=== PATIENT | female | born 1940 | race Caucasian/White ===

== ENCOUNTER → 2017-11-11 09:51 | Outpatient (CLI) | payer MEDICARE, SELFPAY ==
--- NOTE | 2017-11-11 09:53 | VDLE_ITS ---
Reason For Study: LEG SWELLING RIGHT LEFT CFV is compressible, spontaneous, phasic, CFV is compressible, spontaneous, phasic, competent and demonstrates normal competent, and demonstrates normal augmentation. augmentation. FV is compressible, spontaneous, phasic, FV is compressible, spontaneous, phasic, competent and demonstrates normal competent and demonstrates normal augmentation. augmentation. POP V is compressible, spontaneous, phasic, POP V is compressible, spontaneous, phasic, competent and demonstrates normal competent and demonstrates normal augmentation. augmentation. T/P Trunk is compressible. T/P Trunk is compressible. PTV is compressible. PTV is compressible. RT PerV is compressible. LT PerV is compressible. GSV occluded s/p EVLA GSV occluded in thigh s/p EVLA SSv competent. ASV zone 3 is INCOMPETENT with reflux Procedure greater than .5 sec and diameter of .55 Exam performed in department. x .60 cm GSV in calf is INCOMPETENT with reflux greater than .5 sec and diameter of.40 x .40 cm SSv competent INCOMPETENT mold sheet cleaner 13 cm prox to medial malleolus. Interpretation Summary 1. Bilateral no DVT. 2. Left ASV reflux 6mm 3. Left calf GSV 4mm and reflux. Ordering Physician: Jeison Shah Referring Physician: Jeison Shah Performed By: Irene Sheth RVT
== END ==
PROVIDERS: Family Provider Nurse Practitioner Primary Care; PCP Nurse Practitioner Primary Care; Visit Provider Surgery Vascular Surgery
DX: M79.604 Pain in right leg (principal); M79.605 Pain in left leg; M79.89 Other specified soft tissue disorders
CPT/HCPCS: 93970

== ENCOUNTER 2018-08-11 11:07 | Outpatient (RCR) | payer MEDICARE, SELFPAY | END 2018-08-12 23:59 | LOC: WC 11:07 | PROVIDERS: Family Provider Nurse Practitioner Primary Care; PCP Nurse Practitioner Primary Care; Visit Provider Surgery | DX: Z09 Encounter for follow-up examination after completed treatment for conditions other than malignant neoplasm (principal) ==

== ENCOUNTER 2018-09-04 09:00 | Outpatient (RCR) | payer MEDICARE, SELFPAY ==
[2018-08-25 09:46] VITALS: BP 143/76; PULSE 81; RESP 18; TEMP 35.5; BMI 30.6
--- NOTE | 2018-08-25 11:37 | PCM.WC.HP ---
(1) Chronic venous insufficiency Status: Chronic Current Visit: Yes Code(s): I87.2 - Venous insufficiency (chronic) (peripheral) (2) Left leg swelling Status: Chronic Current Visit: Yes Code(s): M79.89 - Other specified soft tissue disorders (3) Venous stasis ulcer Status: Chronic Current Visit: Yes Qualifiers: Venous stasis ulcer site: calf Laterality: left Non-pressure ulcer stage: limited to breakdown of skin Code(s): I83.009 - Varicose veins of unspecified lower extremity with ulcer of unspecified site; L97.909 - Non-pressure chronic ulcer of unspecified part of unspecified lower leg with unspecified severity (4) Peripheral neuropathy Status: Chronic Current Visit: No Code(s): G62.9 - Polyneuropathy, unspecified (5) GERD (gastroesophageal reflux disease) Status: Chronic Current Visit: No Code(s): K21.9 - Gastro-esophageal reflux disease without esophagitis (6) Hyperlipidemia Status: Chronic Current Visit: No Code(s): E78.5 - Hyperlipidemia, unspecified (7) Type 2 diabetes mellitus Status: Chronic Current Visit: No Code(s): E11.9 - Type 2 diabetes mellitus without complications (8) Hypertension Status: Chronic Current Visit: No Code(s): I10 - Essential (primary) hypertension History of Present Illness Date of Service: 08/25/18 Chief Complaint: Venous stasis ulceration of the left lower extremity History of Wound: This is a 77-year-old female who presents with a venous stasis ulceration of the left lower extremity. The ulceration has been present since February 2018. It is located on the left medial calf, in the gator area. The patient claims to sleep flat at night. She is active. She denies a history of thrombophlebitis. She relates swelling in her lower extremities, late in the day. She owns graduated compression stockings, but has not worn compression stockings since onset of her left lower extremity ulceration. She has been treated for cellulitis recently by her primary care physician. This included a course of oral antibiotics, though the patient is uncertain as to which antibiotic was prescribed. In addition, the patient is undergone several endovenous ablation procedures recently, involving both legs. An ablation procedure was performed in the left lower extremity as recently as last month. An ablation procedure was also performed in the right lower extremity several months ago. Records are not available in regard to her recent ablations from Dr. Jeison Shah. Nor our records received from the patient's primary care physician regarding recent treatment for cellulitis. 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 The left great saphenous vein below the knee was seen to be incompetent. The left small saphenous vein appeared competent. An incompetent accessory saphenous vein was noted in zone 3. An incompetent billiard parlor manager vein was noted 13 cm proximal to the left medial malleolus. Past Medical History Past Medical History: Chronic Problems Chronic venous insufficiency (Chronic) Left leg swelling (Chronic) Venous stasis ulcer (Chronic) Peripheral neuropathy (Chronic) Chronic anemia (Chronic) GERD (gastroesophageal reflux disease) (Chronic) Hyperlipidemia (Chronic) Type 2 diabetes mellitus (Chronic) Hypertension (Chronic) Past Medical History: The patient has a history of diabetes mellitus, type II. She also has a history of peripheral neuropathy, hypertension, and hyperlipidemia. The patient's history is negative for myocardial infarction, congestive heart failure, cerebrovascular accident, cancer, renal disease, pulmonary disease, and thyroid disease. Surgical History: appendectomy, - - History of esophageal dilatation probably for esophageal strictures. The patient has undergone bilateral lower extremity venous ablation procedures. She has undergone tonsillectomy in the past, low back surgery, and open reduction and internal fixation of the left lower extremity fracture. Allergies/Adverse Reactions: Allergies No Known Allergies Allergy (Verified 06/03/17 09:21) Home Medications: Ambulatory Orders Medication Instructions Recorded Biotin 5,000 mcg PO TID 06/03/17 Lovastatin [Mevacor] 20 mg PO DAILY 06/03/17 Lysine [l-Lysine] 500 mg PO BID 06/03/17 Omeprazole [Prilosec] 40 mg PO BID 06/03/17 Amlodipine [Norvasc] 5 mg PO DAILY #30 tablet 06/19/17 Cholecalciferol (VIT D3) [Vitamin 3,000 unit PO DAILY #30 06/19/17 D3] Hydrocodone Bitart/Apap 5-325 1 - 2 tablet PO Q4H PRN PRN #14 06/19/17 [[place] 5/325] tablet Iron Polysaccharide Complex 150 mg PO DAILYCM #30 capsule 06/19/17 [Ferrex 150] Metformin HCl [Glucophage] 850 mg PO TIDCM #90 06/19/17 Montelukast [Singulair] 10 mg PO DAILY #30 06/19/17 Pregabalin [Lyrica] 100 mg PO TID #90 06/19/17 - Family History Maternal No pertinent history, - - The patient's mother at age of 82 with a history of Alzheimer's disease. Paternal No pertinent history, - - The patient's father at the age of 45 from a myocardial infarction. Social History: The patient is . She denies use of alcohol and tobacco products. She is employed as a high school assistant principal. Lives: Alone Smoking Status: Former smoker Tobacco Use: Non-smoker Alcohol: None Drugs: None Review of Systems Constitutional: Denies: Chills, Fever, Weight Change Eyes: Denies: Pain, Vision Change HEENT: Denies: Difficulty Hearing, Difficulty Swallowing, Sinus Congestion Cardiovascular: Denies: Chest Pain, Palpitations Respiratory: Denies: Cough, Shortness of Breath Gastrointestinal: Denies: Diarrhea, Nausea, Vomiting Genitourinary: Denies: Dysuria, Hematuria Endocrine: Denies: Heat/ Cold Intolerance, Polydipsia, Polyuria Hematologic/ Lymphatic: Denies: Easy Bruising, Easy Bleeding - Physical Exam Vital Signs Temp Pulse Resp BP 96 F L 81 18 143/76 H 08/25/18 09:46 08/25/18 09:46 08/25/18 09:46 08/25/18 09:46 General: Alert, Oriented x3, Cooperative, No apparent distress, Well developed, Well nourished HEENT: Atraumatic, PERRLA, EOMI, Normocephalic Oral: Moist Mucosa Neck: Supple, No JVD, Negative Carotid Bruits, Negative Hepatojugular Reflux, No Nodes, No Nuchal Rigidity, Trachea Midline Lungs: Clear to auscultation, Normal air movement, No rhonchi, No wheeze, No rales Cardiovascular: Regular rate, Regular Rhythm, Normal S1, Normal S2, No murmurs Abdomen: Soft, Non Tender, Non-Distended Extremities: No clubbing, No cyanosis, No Calf Tenderness, - - Mild swelling and edema are noted in the left lower extremity. A superficial venous ulceration is noted in the left gaiter area medially. There is no obvious sign of infection or cellulitis. Circumference measurements are documented elsewhere. Ulcer dimensions are also documented elsewhere. Wound Measurements and Assessment WC - Nurse 1 - General Ulcer Measurement Start: 08/25/18 09:45 Freq: Status: Active Protocol: Activity Type Activity Date Activity User E-Sign Co-Sign Detail Recorded Client Recorded Date Recorded By Document 08/25/18 09:46 HI [id number] 08/25/18 10:22 HI 08/25/18 09:46 Wound Center Nurse 1 [Ulcer Assessment] #1 Medial LLE Cluster -Combined with other wound Yes -Combined with (Name of Wound-Exactly 1 as it is documented) -Current Size (cm) - Length 3.5 -Current Size (cm) - Width 3.5 -Current Size (cm) - Depth 0.1 -Total Square Cm 12.25 -Date of Last Picture (Recall this 08/25/18 field) -Photo Taken Yes -Epithelialization Medium 34-66% -Tunneling No -Undermining/Tunneling No -Circular Undermining No -Exudate Amt None Present (0 %) -Wound Margin Distinct, Outline Attached -Granulation Amt Large (67-100%) -Granulation Quality Pale [place] -Slough/Fibrin No -Texture (Cherry-wound Skin Appearance) Assessed Localized Edema -Moisture (Cherry-wound Skin Appearance Assessed ) Maceration -Color (Cherry-wound Skin Appearance) Assessed Palor -Temperature (Cherry-wound Skin No Abnormality Appearance) (Pt Warm) -Tenderness on Palpation (Cherry-wound Yes Skin Appearance) -Ulcer Cleansing Wound Cleanser -Foul Odor after Cleansing No -Anesthetic Used 4% Lidocaine Solution [Edema Assessment] -Lower Limb Edema Present Yes -Right Calf (cm) 32.5 -Right Ankle (cm) 24 -Left Calf (cm) 32.5 -Left Ankle (cm) 23 WC - Nurse 2 - General Ulcer CM Notes Start: 08/25/18 09:45 Freq: Status: Active Protocol: Activity Type Activity Date Activity User E-Sign Co-Sign Detail Recorded Client Recorded Date Recorded By Document 08/25/18 11:18 [id number] 08/25/18 11:25 08/25/18 11:18 Wound Center Nurse 2 [Procedure/Treatment] #1 Medial LLE Cluster -Time 11:23 -Correct Patient Yes -Correct Side, Site, Position Yes -Correct Procedure Yes -Wound/Ulcer Outcome Not Healed -Ulcer Cleansing Not Cleansed -Foul Odor after Cleansing No -Bioengineered Tissue No -Topical Lidocaine (%) 4 -Lidocaine (ml) 5 -Bleeding Controlled with NA [See Physician Procedure note for Specifics] Pain Scale: 0-10 Numeric [Pain] -Is Patient Pain Free? Yes Musculoskeletal: No Muscle Wasting Neurological: Cranial nerves II-XII grossly intact, Neuro grossly intact Psych/Mental Status: Normal Affect, Appropriate, Alert and oriented to time, place, person, mood and affect Debridement Note Post-Debridement Measurements/Treatment WC - Nurse 2 - General Ulcer CM Notes Start: 08/25/18 09:45 Freq: Status: Active Protocol: Activity Type Activity Date Activity User E-Sign Co-Sign Detail Recorded Client Recorded Date Recorded By Document 08/25/18 11:18 ELLIOTT [id number] 08/25/18 11:25 ELLIOTT 08/25/18 11:18 Wound Center Nurse 2 #1 Medial LLE Cluster -Time 11:23 -Correct Patient Yes -Correct Side, Site, Position Yes -Correct Procedure Yes -Wound/Ulcer Outcome Not Healed -Ulcer Cleansing Not Cleansed -Foul Odor after Cleansing No -Bioengineered Tissue No -Topical Lidocaine (%) 4 -Lidocaine (ml) 5 -Bleeding Controlled with NA Pain Scale: 0-10 Numeric Is Patient Pain Free? Yes No debridement was completed today Assessment/Plan Active Problems Chronic venous insufficiency (Chronic) Left leg swelling (Chronic) Venous stasis ulcer (Chronic) Assessment: This is a 77-year-old female who presents with a history of chronic venous disease. She has previously undergone bilateral lower extremity venous ablation procedures. The nature of these procedures is unknown. Records will be requested. The patient relates swelling in her lower extremities, typically at days end. She denies a history of thrombophlebitis. She generally wears graduated compression stockings, but has not done so since the onset of the ulceration in the left lower extremity. It appears as though she was treated for cellulitis in the left lower extremity, prescribed a course of oral antibiotics by her primary care physician. Plan: Insert of treatment measures are to be implemented. The patient is to elevate her lower extremities as much as possible. She is to continue sleeping on a flat mattress at night. She is to elevate her lower extremities as much as possible during daytime hours. Elevation is to be to heart level, or higher. She has been advised to refrain from prolonged idle sitting. Activity has been encouraged. Weight optimization has also been recommended. Compression is to be implemented to the left lower extremity by means of an [place] boot, which will be changed twice weekly. We are to obtain routine laboratory studies, including a CBC, conference of metabolic profile, hemoglobin A1c, and a serum prealbumin. Noninvasive vascular studies will be obtained, both a noninvasive lower extremity arterial study and a venous duplex examination. Records will be requested from the patient's other physicians, her primary care physician and Dr. Jeison Shah. The patient will return in 1 week for reassessment. Influenza vaccine was not administered today. The patient is not a smoker. The patient weighs 162 pounds. She stands 5 feet 1 inch tall. Her BMI is 30.6. This places her in a class I obesity category. Weight loss has been recommended, and collaboration with her primary care physician has been recommended.
--- NOTE | 2018-08-25 11:44 | HP.PCM_ITS ---
(1) Chronic venous insufficiency Status: Chronic Current Visit: Yes Code(s): I87.2 - Venous insufficiency (chronic) (peripheral) (2) Left leg swelling Status: Chronic Current Visit: Yes Code(s): M79.89 - Other specified soft tissue disorders (3) Venous stasis ulcer Status: Chronic Current Visit: Yes Qualifiers: Venous stasis ulcer site: calf Laterality: left Non-pressure ulcer stage: limited to breakdown of skin Code(s): I83.009 - Varicose veins of unspecified lower extremity with ulcer of unspecified site; L97.909 - Non-pressure chronic ulcer of unspecified part of unspecified lower leg with unspecified severity (4) Peripheral neuropathy Status: Chronic Current Visit: No Code(s): G62.9 - Polyneuropathy, unspecif ied (5) GERD (gastroesophageal reflux disease) Status: Chronic Current Visit: No Code(s): K21.9 - Gastro-esophageal reflux disease without esophagitis (6) Hyperlipidemia Status: Chronic Current Visit: No Code(s): E78.5 - Hyperlipidemia, unspecified (7) Type 2 diabetes mellitus Status: Chronic Current Visit: No Code(s): E11.9 - Type 2 diabetes mellitus without complications (8) Hypertension Status: Chronic Current Visit: No Code(s): I10 - Essential (primary) hypertension History of Present Illness Date of Service: 08/25/18 Chief Complaint: Venous stasis ulceration of the left lower extremity History of Wound: This is a 77-year-old female who presents with a venous stasis ulceration of the left lower extremity. The ulceration has been present since February 2018. It is located on the left medial calf, in the gator area. The patient claims to sleep flat at night. She is active. She denies a history of thrombophlebitis. She relates swelling in her lower extremities, late in the day. She owns graduated compression stockings, but has not worn compression stockings since onset of her left lower extremity ulceration. She has been treated for cellulitis recently by her primary care physician. This included a course of oral antibiotics, though the patient is uncertain as to which antibiotic was prescribed. In addition, the patient is undergone several endovenous ablation procedures recently, involving both legs. An ablation procedure was performed in the left lower extremity as recently as last month. An ablation procedure was also performed in the right lower extremity several months ago. Records are not available in regard to her recent ablations from Dr. Jeison Shah. Nor our records received from the patient's primary care physician regarding recent treatment for cellulitis. 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 The left great saphenous vein below the knee was seen to be incompetent. The left small saphenous vein appeared competent. An incompetent accessory saphenous vein was noted in zone 3. An incompetent management aide vein was noted 13 cm proximal to the left medial malleolus. Past Medical History Past Medical History: Chronic Problems Chronic venous insufficiency (Chronic) Left leg swelling (Chronic) Venous stasis ulcer (Chronic) Peripheral neuropathy (Chronic) Chronic anemia (Chronic) GERD (gastroesophageal reflux disease) (Chronic) Hyperlipidemia (Chronic) Type 2 diabetes mellitus (Chronic) Hypertension (Chronic) Past Medical History: The patient has a history of diabetes mellitus, type II. She also has a history of peripheral neuropathy, hypertension, and hyperlipidemia. The patient's history is negative for myocardial infarction, congestive heart failure, cerebrovascular accident, cancer, renal disease, pulmonary disease, and thyroid disease. Surgical History: appendectomy, - - History of esophageal dilatation probably for esophageal strictures. The patient has undergone bilateral lower extremity venous ablation procedures. She has undergone tonsillectomy in the past, low back surgery, and open reduction and internal fixation of the left lower extremity fracture. Allergies/Adverse Reactions: Allergies No Known Allergies Allergy (Verified 06/03/17 09:21) Home Medications: Ambulatory Orders Medication Instructions Recorded Biotin 5,000 mcg PO TID 06/03/17 Lovastatin [Mevacor] 20 mg PO DAILY 06/03/17 Lysine [l-Lysine] 500 mg PO BID 06/03/17 Omeprazole [Prilosec] 40 mg PO BID 06/03/17 Amlodipine [Norvasc] 5 mg PO DAILY #30 tablet 06/19/17 Cholecalciferol (VIT D3) [Vitamin 3,000 unit PO DAILY #30 06/19/17 D3] Hydrocodone Bitart/Apap 5-325 1 - 2 tablet PO Q4H PRN PRN #14 06/19/17 [[place] 5/325] tablet Iron Polysaccharide Complex 150 mg PO DAILYCM #30 capsule 06/19/17 [Ferrex 150] Metformin HCl [Glucophage] 850 mg PO TIDCM #90 06/19/17 Montelukast [Singulair] 10 mg PO DAILY #30 06/19/17 Pregabalin [Lyrica] 100 mg PO TID #90 06/19/17 - Family History Maternal No pertinent history, - - The patient's mother at age of 82 with a history of Alzheimer's disease. Paternal No pertinent history, - - The patient's father at the age of 45 from a myocardial infarction. Social History: The patient is . She denies use of alcohol and tobacco products. She is employed as a high school history teacher. Lives: Alone Smoking Status: Former smoker Tobacco Use: Non-smoker Alcohol: None Drugs: None Review of Systems Constitutional: Denies: Chills, Fever, Weight Change Eyes: Denies: Pain, Vision Change HEENT: Denies: Difficulty Hearing, Difficulty Swallowing, Sinus Congestion Cardiovascular: Denies: Chest Pain, Palpitations Respiratory: Denies: Cough, Shortness of Breath Gastrointestinal: Denies: Diarrhea, Nausea, Vomiting Genitourinary: Denies: Dysuria, Hematuria Endocrine: Denies: Heat/ Cold Intolerance, Polydipsia, Polyuria Hematologic/ Lymphatic: Denies: Easy Bruising, Easy Bleeding - Physical Exam Vital Signs Temp Pulse Resp BP 96 F L 81 18 143/76 H 08/25/18 09:46 08/25/18 09:46 08/25/18 09:46 08/25/18 09:46 General: Alert, Oriented x3, Cooperative, No apparent distress, Well developed, Well nourished HEENT: Atraumatic, PERRLA, EOMI, Normocephalic Oral: Moist Mucosa Neck: Supple, No JVD, Negative Carotid Bruits, Negative Hepatojugular Reflux, No Nodes, No Nuchal Rigidity, Trachea Midline Lungs: Clear to auscultation, Normal air movement, No rhonchi, No wheeze, No rales Cardiovascular: Regular rate, Regular Rhythm, Normal S1, Normal S2, No murmurs Abdomen: Soft, Non Tender, Non-Distended Extremities: No clubbing, No cyanosis, No Calf Tenderness, - - Mild swelling and edema are noted in the left lower extremity. A superficial venous ulceration is noted in the left gaiter area medially. There is no obvious sign of infection or cellulitis. Circumference measurements are documented elsewhere. Ulcer dimensions are also documented elsewhere. Wound Measurements and Assessment WC - Nurse 1 - General Ulcer Measurement Start: 08/25/18 09:45 Freq: Status: Active Protocol: Activity Type Activity Date Activity User E-Sign Co-Sign Detail Recorded Client Recorded Date Recorded By Document 08/25/18 09:46 NM [id number] 08/25/18 10:22 MT 08/25/18 09:46 Wound Center Nurse 1 [Ulcer Assessment] #1 Medial LLE Cluster -Combined with other wound Yes -Combined with (Name of Wound-Exactly 1 as it is documented) -Current Size (cm) - Length 3.5 -Current Size (cm) - Width 3.5 -Current Size (cm) - Depth 0.1 -Total Square Cm 12.25 -Date of Last Picture (Recall this 08/25/18 field) -Photo Taken Yes -Epithelialization Medium 34-66% -Tunneling No -Undermining/Tunneling No -Circular Undermining No -Exudate Amt None Present (0 %) -Wound Margin Distinct, Outline Attached -Granulation Amt Large (67-100%) -Granulation Quality Pale Redan -Slough/Fibrin No -Texture (Cherry-wound Skin Appearance) Assessed Localized Edema -Moisture (Cherry-wound Skin Appearance Assessed ) Maceration -Color (Cherry-wound Skin Appearance) Assessed Palor -Temperature (Cherry-wound Skin No Abnormality Appearance) (Pt Warm) -Tenderness on Palpation (Cherry-wound Yes Skin Appearance) -Ulcer Cleansing Wound Cleanser -Foul Odor after Cleansing No -Anesthetic Used 4% Lidocaine Solution [Edema Assessment] -Lower Limb Edema Present Yes -Right Calf (cm) 32.5 -Right Ankle (cm) 24 -Left Calf (cm) 32.5 -Left Ankle (cm) 23 WC - Nurse 2 - General Ulcer CM Notes Start: 08/25/18 09:45 Freq: Status: Active Protocol: Activity Type Activity Date Activity User E-Sign Co-Sign Detail Recorded Client Recorded Date Recorded By Document 08/25/18 11:18 [id number] 08/25/18 11:25 08/25/18 11:18 Wound Center Nurse 2 [Procedure/Treatment] #1 Medial LLE Cluster -Time 11:23 -Correct Patient Yes -Correct Side, Site, Position Yes -Correct Procedure Yes -Wound/Ulcer Outcome Not Healed -Ulcer Cleansing Not Cleansed -Foul Odor after Cleansing No -Bioengineered Tissue No -Topical Lidocaine (%) 4 -Lidocaine (ml) 5 -Bleeding Controlled with NA [See Physician Procedure note for Specifics] Pain Scale: 0-10 Numeric [Pain] -Is Patient Pain Free? Yes Musculoskeletal: No Muscle Wasting Neurological: Cranial nerves II-XII grossly intact, Neuro grossly intact Psych/Mental Status: Normal Affect, Appropriate, Alert and oriented to time, place, person, mood and affect Debridement Note Post-Debridement Measurements/Treatment WC - Nurse 2 - General Ulcer CM Notes Start: 08/25/18 09:45 Freq: Status: Active Protocol: Activity Type Activity Date Activity User E-Sign Co-Sign Detail Recorded Client Recorded Date Recorded By Document 08/25/18 11:18 ELLIOTT [id number] 08/25/18 11:25 ELLIOTT 08/25/18 11:18 Wound Center Nurse 2 #1 Medial LLE Cluster -Time 11:23 -Correct Patient Yes -Correct Side, Site, Position Yes -Correct Procedure Yes -Wound/Ulcer Outcome Not Healed -Ulcer Cleansing Not Cleansed -Foul Odor after Cleansing No -Bioengineered Tissue No -Topical Lidocaine (%) 4 -Lidocaine (ml) 5 -Bleeding Controlled with NA Pain Scale: 0-10 Numeric Is Patient Pain Free? Yes No debridement was completed today Assessment/Plan Active Problems Chronic venous insufficiency (Chronic) Left leg swelling (Chronic) Venous stasis ulcer (Chronic) Assessment: This is a 77-year-old female who presents with a history of chronic venous disease. She has previously undergone bilateral lower extremity venous ablation procedures. The nature of these procedures is unknown. Records will be requested. The patient relates swelling in her lower extremities, typically at days end. She denies a history of thrombophlebitis. She generally wears graduated compression stockings, but has not done so since the onset of the ulceration in the left lower extremity. It appears as though she was treated for cellulitis in the left lower extremity, prescribed a course of oral antibiotics by her primary care physician. Plan: Insert of treatment measures are to be implemented. The patient is to elevate her lower extremities as much as possible. She is to continue sleeping on a flat mattress at night. She is to elevate her lower extremities as much as possible during daytime hours. Elevation is to be to heart level, or higher. She has been advised to refrain from prolonged idle sitting. Activity has been encouraged. Weight optimization has also been recommended. Compression is to be implemented to the left lower extremity by means of an [place] boot, which will be changed twice weekly. We are to obtain routine laboratory studies, including a CBC, conference of metabolic profile, hemoglobin A1c, and a serum prealbumin. Noninvasive vascular studies will be obtained, both a noninvasive lower extremity arterial study and a venous duplex examination. Records will be requested from the patient's other physicians, her primary care physician and Dr. Jeison Shah. The patient will return in 1 week for reassessment. Influenza vaccine was not administered today. The patient is not a smoker. The patient weighs 162 pounds. She stands 5 feet 1 inch tall. Her BMI is 30.6. This places her in a class I obesity category. Weight loss has been recommended, and collaboration with her primary care physician has been recommended.
[2018-08-28 09:29] VITALS: BP 143/66; PULSE 67; RESP 18; TEMP 36.3; BMI 30.6
[2018-09-01 10:23] VITALS: BP 141/77; PULSE 76; RESP 20; TEMP 36.8; BMI 30.6
--- NOTE | 2018-09-01 11:30 | PCM.WC.HP ---
(1) Chronic venous insufficiency Status: Chronic Current Visit: Yes Code(s): I87.2 - Venous insufficiency (chronic) (peripheral) (2) Left leg swelling Status: Chronic Current Visit: Yes Code(s): M79.89 - Other specified soft tissue disorders (3) Venous stasis ulcer Status: Chronic Current Visit: Yes Qualifiers: Venous stasis ulcer site: calf Laterality: left Non-pressure ulcer stage: limited to breakdown of skin Code(s): I83.009 - Varicose veins of unspecified lower extremity with ulcer of unspecified site; L97.909 - Non-pressure chronic ulcer of unspecified part of unspecified lower leg with unspecified severity (4) Peripheral neuropathy Status: Chronic Current Visit: No Code(s): G62.9 - Polyneuropathy, unspecified (5) GERD (gastroesophageal reflux disease) Status: Chronic Current Visit: No Code(s): K21.9 - Gastro-esophageal reflux disease without esophagitis (6) Hyperlipidemia Status: Chronic Current Visit: No Code(s): E78.5 - Hyperlipidemia, unspecified (7) Type 2 diabetes mellitus Status: Chronic Current Visit: No Code(s): E11.9 - Type 2 diabetes mellitus without complications (8) Hypertension Status: Chronic Current Visit: No Code(s): I10 - Essential (primary) hypertension History of Present Illness Chief Complaint: Venous stasis ulceration of the left lower extremity History of Wound: This is a 77-year-old female who presents with a venous stasis ulceration of the left lower extremity. The ulceration has been present since February 2018. It is located on the left medial calf, in the gator area. The patient claims to sleep flat at night. She is active. She denies a history of thrombophlebitis. She relates swelling in her lower extremities, late in the day. She owns graduated compression stockings, but has not worn compression stockings since onset of her left lower extremity ulceration. She has been treated for cellulitis recently by her primary care physician. This included a course of oral antibiotics, though the patient is uncertain as to which antibiotic was prescribed. In addition, the patient has undergone several endovenous ablation procedures recently, involving both legs. An ablation procedure was performed in the left lower extremity as recently as last month. An ablation procedure was also performed in the right lower extremity several months ago. Records are not available in regard to her recent ablations from Dr. Jeison Shah. Nor our records received from the patient's primary care physician regarding recent treatment for cellulitis. Review of 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 The left great saphenous vein below the knee was seen to be incompetent. The left small saphenous vein appeared competent. An incompetent accessory saphenous vein was noted in zone 3. An incompetent cheese cook vein was noted 13 cm proximal to the left medial malleolus. Past Medical History Past Medical History: Chronic Problems Chronic venous insufficiency (Chronic) Left leg swelling (Chronic) Venous stasis ulcer (Chronic) Peripheral neuropathy (Chronic) Chronic anemia (Chronic) GERD (gastroesophageal reflux disease) (Chronic) Hyperlipidemia (Chronic) Type 2 diabetes mellitus (Chronic) Hypertension (Chronic) Surgical History: appendectomy, - - History of esophageal dilatation probably for esophageal strictures. The patient has undergone bilateral lower extremity venous ablation procedures. She has undergone tonsillectomy in the past, low back surgery, and open reduction and internal fixation of the left lower extremity fracture. Allergies/Adverse Reactions: Allergies No Known Allergies Allergy (Verified 06/03/17 09:21) Home Medications: Ambulatory Orders Medication Instructions Recorded Biotin 5,000 mcg PO TID 06/03/17 Lovastatin [Mevacor] 20 mg PO DAILY 06/03/17 Lysine [l-Lysine] 500 mg PO BID 06/03/17 Omeprazole [Prilosec] 40 mg PO BID 06/03/17 Amlodipine [Norvasc] 5 mg PO DAILY #30 tablet 06/19/17 Cholecalciferol (VIT D3) [Vitamin 3,000 unit PO DAILY #30 06/19/17 D3] Hydrocodone Bitart/Apap 5-325 1 - 2 tablet PO Q4H PRN PRN #14 06/19/17 [[place] 5/325] tablet Iron Polysaccharide Complex 150 mg PO DAILYCM #30 capsule 06/19/17 [Ferrex 150] Metformin HCl [Glucophage] 850 mg PO TIDCM #90 06/19/17 Montelukast [Singulair] 10 mg PO DAILY #30 06/19/17 Pregabalin [Lyrica] 100 mg PO TID #90 06/19/17 - Family History Maternal No pertinent history, - - The patient's mother at age of 82 with a history of Alzheimer's disease. Paternal No pertinent history, - - The patient's father at the age of 45 from a myocardial infarction. Lives: Alone Smoking Status: Former smoker Tobacco Use: Non-smoker Alcohol: None Drugs: None Review of Systems Constitutional: Denies: Chills, Fever, Weight Change Eyes: Denies: Pain, Vision Change HEENT: Denies: Difficulty Hearing, Difficulty Swallowing, Sinus Congestion Cardiovascular: Denies: Chest Pain, Palpitations Respiratory: Denies: Cough, Shortness of Breath Gastrointestinal: Denies: Diarrhea, Nausea, Vomiting Genitourinary: Denies: Dysuria, Hematuria Endocrine: Denies: Heat/ Cold Intolerance, Polydipsia, Polyuria Hematologic/ Lymphatic: Denies: Easy Bruising, Easy Bleeding - Physical Exam Vital Signs Temp Pulse Resp BP 98.2 F 76 20 H 141/77 H 09/01/18 10:23 09/01/18 10:23 09/01/18 10:23 09/01/18 10:23 General: Alert, Oriented x3, Cooperative, No apparent distress, Well developed, Well nourished HEENT: Atraumatic, PERRLA, EOMI, Normocephalic Oral: Moist Mucosa Neck: No JVD Lungs: Normal air movement Abdomen: Non-Distended Extremities: No clubbing, No cyanosis, No edema, No Calf Tenderness, - - There is no significant swelling or edema in the lower extremities. The ulceration in the left lower extremity is now completely healed and epithelialized. There is no sign of infection or cellulitis. Slight scaly venous dermatitis is noted. Wound Measurements and Assessment WC - Nurse 1 - General Ulcer Measurement Start: 08/25/18 09:45 Freq: Status: Active Protocol: Activity Type Activity Date Activity User E-Sign Co-Sign Detail Recorded Client Recorded Date Recorded By Document 09/01/18 10:23 [email or web address] [id number] 09/01/18 10:31 TANJA 09/01/18 10:23 Wound Center Nurse 1 [Ulcer Assessment] #1 Medial LLE Cluster -Combined with other wound No -Current Size (cm) - Length 0 -Current Size (cm) - Width 0 -Current Size (cm) - Depth 0 -Total Square Cm 0 -Photo Taken Yes -Epithelialization Large 67-100% [Edema Assessment] -Lower Limb Edema Present Yes -Left Calf (cm) 30.0 -Left Ankle (cm) 20.9 - Nurse 2 - General Ulcer CM Notes Start: 08/25/18 09:45 Freq: Status: Active Protocol: Activity Type Activity Date Activity User E-Sign Co-Sign Detail Recorded Client Recorded Date Recorded By Document 09/01/18 11:20 [id number] 09/01/18 11:21 09/01/18 11:20 Wound Center Nurse 2 [Procedure/Treatment] #1 Medial LLE Cluster -Time 11:21 -Correct Patient Yes -Correct Side, Site, Position Yes -Correct Procedure Yes -Wound/Ulcer Outcome Not Healed -Foul Odor after Cleansing No -Bioengineered Tissue No -Bleeding Controlled with NA [See Physician Procedure note for Specifics] Pain Scale: 0-10 Numeric [Pain] -Is Patient Pain Free? Yes Musculoskeletal: No Muscle Wasting Neurological: Cranial nerves II-XII grossly intact, Neuro grossly intact Psych/Mental Status: Normal Affect, Appropriate, Alert and oriented to time, place, person, mood and affect Debridement Note Post-Debridement Measurements/Treatment - Nurse 2 - General Ulcer CM Notes Start: 08/25/18 09:45 Freq: Status: Active Protocol: Activity Type Activity Date Activity User E-Sign Co-Sign Detail Recorded Client Recorded Date Recorded By Document 08/25/18 11:18 [id number] 08/25/18 11:25 JS Document 09/01/18 11:20 [id number] 09/01/18 11:21 08/25/18 09/01/18 11:18 11:20 Wound Center Nurse 2 #1 Medial LLE Cluster -Time 11:23 11:21 -Correct Patient Yes Yes -Correct Side, Site, Position Yes Yes -Correct Procedure Yes Yes -Wound/Ulcer Outcome Not Healed Not Healed -Ulcer Cleansing Not Cleansed -Foul Odor after Cleansing No No -Bioengineered Tissue No No -Topical Lidocaine (%) 4 -Lidocaine (ml) 5 -Bleeding Controlled with NA NA Pain Scale: 0-10 Numeric Is Patient Pain Free? Yes Yes No debridement was completed today Assessment/Plan Active Problems Chronic venous insufficiency (Chronic) Left leg swelling (Chronic) Venous stasis ulcer (Chronic) Assessment: This is a 77-year-old female who presents with a history of chronic venous disease. She has previously undergone bilateral lower extremity venous ablation procedures. The nature of these procedures is unknown. Records were requested, but not received. The patient relates swelling in her lower extremities, typically at days end. She denies a history of thrombophlebitis. She generally wears graduated compression stockings, but has not done so since the onset of the ulceration in the left lower extremity. It appears as though she had been recently treated for cellulitis in the left lower extremity, and prescribed a course of oral antibiotics by her primary care physician. At this time, however, it appears as though the venous ulceration in the left lower extremity is now completely healed and epithelialized. Plan: The patient's left lower extremity venous ulceration is now completely healed. [facility] Conservative treatment measures are to be continued. The patient is to elevate her lower extremities as much as possible. She is to continue sleeping on a flat mattress at night. She is to elevate her lower extremities as much as possible during daytime hours. Elevation is to be to heart level, or higher. She has been advised to refrain from prolonged idle sitting. Activity has been encouraged. Weight optimization has also been recommended. Compression is to continue to the lower extremities by means of graduated compression stockings of 20-30 mmHg, which the patient currently possesses. There use of skin moisturizing lotion for the scaly venous dermatitis has been recommended. Records have not been received from Dr. Shah's office, but the patient indicates that she has an appointment with Dr. Shah tomorrow. Her care will be deferred henceforth to Dr. Shah, who was performed 2 or 3 venous procedures in the past. Her venous ulcer in the left lower extremity is now completely healed. She has responded well to initial management. Influenza vaccine was not administered today. The patient is not a smoker. The patient weighs 162 pounds. She stands 5 feet 1 inch tall. Her BMI is 30.6. This places her in a class I obesity category. Weight loss has been recommended, and collaboration with her primary care physician has been recommended.
--- NOTE | 2018-09-01 11:37 | HP.PCM_ITS ---
(1) Chronic venous insufficiency Status: Chronic Current Visit: Yes Code(s): I87.2 - Venous insufficiency (chronic) (peripheral) (2) Left leg swelling Status: Chronic Current Visit: Yes Code(s): M79.89 - Other specified soft tissue disorders (3) Venous stasis ulcer Status: Chronic Current Visit: Yes Qualifiers: Venous stasis ulcer site: calf Laterality: left Non-pressure ulcer stage: limited to breakdown of skin Code(s): I83.009 - Varicose veins of unspecified lower extremity with ulcer of unspecified site; L97.909 - Non-pressure chronic ulcer of unspecified part of unspecified lower leg with unspecified severity (4) Peripheral neuropathy Status: Chronic Current Visit: No Code(s): G62.9 - Polyneuropathy, unspecif ied (5) GERD (gastroesophageal reflux disease) Status: Chronic Current Visit: No Code(s): K21.9 - Gastro-esophageal reflux disease without esophagitis (6) Hyperlipidemia Status: Chronic Current Visit: No Code(s): E78.5 - Hyperlipidemia, unspecified (7) Type 2 diabetes mellitus Status: Chronic Current Visit: No Code(s): E11.9 - Type 2 diabetes mellitus without complications (8) Hypertension Status: Chronic Current Visit: No Code(s): I10 - Essential (primary) hypertension History of Present Illness Chief Complaint: Venous stasis ulceration of the left lower extremity History of Wound: This is a 77-year-old female who presents with a venous stasis ulceration of the left lower extremity. The ulceration has been present since February 2018. It is located on the left medial calf, in the gator area. The patient claims to sleep flat at night. She is active. She denies a history of thrombophlebitis. She relates swelling in her lower extremities, late in the day. She owns graduated compression stockings, but has not worn compression stockings since onset of her left lower extremity ulceration. She has been treated for cellulitis recently by her primary care physician. This included a course of oral antibiotics, though the patient is uncertain as to which antibiotic was prescribed. In addition, the patient has undergone several endo venous ablation procedures recently, involving both legs. An ablation procedure was performed in the left lower extremity as recently as last month. An ablation procedure was also performed in the right lower extremity several months ago. Records are not available in regard to her recent ablations from Dr. Jeison Shah. Nor our records received from the patient's primary care physician regarding recent treatment for cellulitis. 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 The left great saphenous vein below the knee was seen to be incompetent. The left small saphenous vein appeared competent. An incompetent accessory saphenous vein was noted in zone 3. An incompetent slag motor operator vein was noted 13 cm proximal to the left medial malleolus. Past Medical History Past Medical History: Chronic Problems Chronic venous insufficiency (Chronic) Left leg swelling (Chronic) Venous stasis ulcer (Chronic) Peripheral neuropathy (Chronic) Chronic anemia (Chronic) GERD (gastroesophageal reflux disease) (Chronic) Hyperlipidemia (Chronic) Type 2 diabetes mellitus (Chronic) Hypertension (Chronic) Surgical History: appendectomy, - - History of esophageal dilatation probably for esophageal strictures. The patient has undergone bilateral lower extremity venous ablation procedures. She has undergone tonsillectomy in the past, low back surgery, and open reduction and internal fixation of the left lower extremity fracture. Allergies/Adverse Reactions: Allergies No Known Allergies Allergy (Verified 06/03/17 09:21) Home Medications: Ambulatory Orders Medication Instructions Recorded Biotin 5,000 mcg PO TID 06/03/17 Lovastatin [Mevacor] 20 mg PO DAILY 06/03/17 Lysine [l-Lysine] 500 mg PO BID 06/03/17 Omeprazole [Prilosec] 40 mg PO BID 06/03/17 Amlodipine [Norvasc] 5 mg PO DAILY #30 tablet 06/19/17 Cholecalciferol (VIT D3) [Vitamin 3,000 unit PO DAILY #30 06/19/17 D3] Hydrocodone Bitart/Apap 5-325 1 - 2 tablet PO Q4H PRN PRN #14 06/19/17 [[place] 5/325] tablet Iron Polysaccharide Complex 150 mg PO DAILYCM #30 capsule 06/19/17 [Ferrex 150] Metformin HCl [Glucophage] 850 mg PO TIDCM #90 06/19/17 Montelukast [Singulair] 10 mg PO DAILY #30 06/19/17 Pregabalin [Lyrica] 100 mg PO TID #90 06/19/17 - Family History Maternal No pertinent history, - - The patient's mother at age of 82 with a history of Alzheimer's disease. Paternal No pertinent history, - - The patient's father at the age of 45 from a myocardial infarction. Lives: Alone Smoking Status: Former smoker Tobacco Use: Non-smoker Alcohol: None Drugs: None Review of Systems Constitutional: Denies: Chills, Fever, Weight Change Eyes: Denies: Pain, Vision Change HEENT: Denies: Difficulty Hearing, Difficulty Swallowing, Sinus Congestion Cardiovascular: Denies: Chest Pain, Palpitations Respiratory: Denies: Cough, Shortness of Breath Gastrointestinal: Denies: Diarrhea, Nausea, Vomiting Genitourinary: Denies: Dysuria, Hematuria Endocrine: Denies: Heat/ Cold Intolerance, Polydipsia, Polyuria Hematologic/ Lymphatic: Denies: Easy Bruising, Easy Bleeding - Physical Exam Vital Signs Temp Pulse Resp BP 98.2 F 76 20 H 141/77 H 09/01/18 10:23 09/01/18 10:23 09/01/18 10:23 09/01/18 10:23 General: Alert, Oriented x3, Cooperative, No apparent distress, Well developed, Well nourished HEENT: Atraumatic, PERRLA, EOMI, Normocephalic Oral: Moist Mucosa Neck: No JVD Lungs: Normal air movement Abdomen: Non-Distended Extremities: No clubbing, No cyanosis, No edema, No Calf Tenderness, - - There is no significant swelling or edema in the lower extremities. The ulceration in the left lower extremity is now completely healed and epithelialized. There is no sign of infection or cellulitis. Slight scaly venous dermatitis is noted. Wound Measurements and Assessment WC - Nurse 1 - General Ulcer Measurement Start: 08/25/18 09:45 Freq: Status: Active Protocol: Activity Type Activity Date Activity User E-Sign Co-Sign Detail Recorded Client Recorded Date Recorded By Document 09/01/18 10:23 [id number] 09/01/18 10:31 09/01/18 10:23 Wound Center Nurse 1 [Ulcer Assessment] #1 Medial LLE Cluster -Combined with other wound No -Current Size (cm) - Length 0 -Current Size (cm) - Width 0 -Current Size (cm) - Depth 0 -Total Square Cm 0 -Photo Taken Yes -Epithelialization Large 67-100% [Edema Assessment] -Lower Limb Edema Present Yes -Left Calf (cm) 30.0 -Left Ankle (cm) 20.9 - Nurse 2 - General Ulcer CM Notes Start: 08/25/18 09:45 Freq: Status: Active Protocol: Activity Type Activity Date Activity User E-Sign Co-Sign Detail Recorded Client Recorded Date Recorded By Document 09/01/18 11:20 [id number] 09/01/18 11:21 09/01/18 11:20 Wound Center Nurse 2 [Procedure/Treatment] #1 Medial LLE Cluster -Time 11:21 -Correct Patient Yes -Correct Side, Site, Position Yes -Correct Procedure Yes -Wound/Ulcer Outcome Not Healed -Foul Odor after Cleansing No -Bioengineered Tissue No -Bleeding Controlled with NA [See Physician Procedure note for Specifics] Pain Scale: 0-10 Numeric [Pain] -Is Patient Pain Free? Yes Musculoskeletal: No Muscle Wasting Neurological: Cranial nerves II-XII grossly intact, Neuro grossly intact Psych/Mental Status: Normal Affect, Appropriate, Alert and oriented to time, place, person, mood and affect Debridement Note Post-Debridement Measurements/Treatment - Nurse 2 - General Ulcer CM Notes Start: 08/25/18 09:45 Freq: Status: Active Protocol: Activity Type Activity Date Activity User E-Sign Co-Sign Detail Recorded Client Recorded Date Recorded By Document 08/25/18 11:18 [id number] 08/25/18 11:25 Document 09/01/18 11:20 [id number] 09/01/18 11:21 08/25/18 09/01/18 11:18 11:20 Wound Center Nurse 2 #1 Medial LLE Cluster -Time 11:23 11:21 -Correct Patient Yes Yes -Correct Side, Site, Position Yes Yes -Correct Procedure Yes Yes -Wound/Ulcer Outcome Not Healed Not Healed -Ulcer Cleansing Not Cleansed -Foul Odor after Cleansing No No -Bioengineered Tissue No No -Topical Lidocaine (%) 4 -Lidocaine (ml) 5 -Bleeding Controlled with NA NA Pain Scale: 0-10 Numeric Is Patient Pain Free? Yes Yes No debridement was completed today Assessment/Plan Active Problems Chronic venous insufficiency (Chronic) Left leg swelling (Chronic) Venous stasis ulcer (Chronic) Assessment: This is a 77-year-old female who presents with a history of chronic venous disease. She has previously undergone bilateral lower extremity venous ablation procedures. The nature of these procedures is unknown. Records were requested, but not received. The patient relates swelling in her lower extremities, typically at days end. She denies a history of thrombophlebitis. She generally wears graduated compression stockings, but has not done so since the onset of the ulceration in the left lower extremity. It appears as though she had been recently treated for cellulitis in the left lower extremity, and prescribed a course of oral antibiotics by her primary care physician. At this time, however, it appears as though the venous ulceration in the left lower extremity is now completely healed and epithelialized. Plan: The patient's left lower extremity venous ulceration is now completely healed. [facility]. Conservative treatment measures are to be continued. The patient is to elevate her lower extremities as much as possible. She is to continue sleeping on a flat mattress at night. She is to elevate her lower extremities as much as possible during daytime hours. Elevation is to be to heart level, or higher. She has been advised to refrain from prolonged idle sitting. Activity has been encouraged. Weight optimization has also been recommended. Compression is to continue to the lower extremities by means of graduated compression stockings of 20-30 mmHg, which the patient currently possesses. There use of skin moisturizing lotion for the scaly venous dermatitis has been recommended. Records have not been received from Dr. Shah's office, but the patient indicates that she has an appointment with Dr. Shah tomorrow. Her care will be deferred henceforth to Dr. Shah, who was performed 2 or 3 venous procedures in the past. Her venous ulcer in the left lower extremity is now completely healed. She has responded well to initial management. Influenza vaccine was not administered today. The patient is not a smoker. The patient weighs 162 pounds. She stands 5 feet 1 inch tall. Her BMI is 30.6. This places her in a class I obesity category. Weight loss has been recommended, and collaboration with her primary care physician has been recommended.
--- NOTE | 2018-09-04 08:58 | VDLE_ITS ---
Reason For Study: edema, venous insufficiency RIGHT LEFT GSV is normal. GSV is normal. CFV is compressible, spontaneous, phasic, CFV is compressible, spontaneous, phasic, competent and demonstrates normal competent, and demonstrates normal augmentation. augmentation. FV is compressible, spontaneous, phasic, FV is compressible, spontaneous, phasic, competent and demonstrates normal competent and demonstrates normal augmentation. augmentation. POP V is compressible, spontaneous, phasic, T/P Trunk is compressible. competent and demonstrates normal PTV is compressible. augmentation. LT PerV is compressible. T/P Trunk is compressible. POP V is compressible, spontaneous, phasic, PTV is compressible. competent and demonstrates reflus > 1.0 RT PerV is compressible. seconds upon augmentation. SFJ is competent. SFJ is competent. GSV appears occluded S/P EVLA. GSV appears incompetent above knee > .5 SSV appears competent. seconds. Procedure GSV at knee and below appears cometent. Exam performed in department. SSV appears incompetent > .5 seconds. The study was technically difficult. <> Interpretation Summary Deep veins of the lower extremities are bilaterally patent and compressible segmentally. There is no evidence of deep vein thrombosis on either side. Valvular competence appears intact within the proximal deep venous system on the right . The left popliteal vein is incompetent, though the left common femoral vein and femoral vein are competent. Sapheno-femoral junctions are bilaterally competent . The right greater saphenous vein is occluded, consistent with a prior endothermal ablation procedure. The left greater saphenous vein is incompetent above the knee. The left greater saphenous vein is competent below the knee. The right small saphenous vein is patent and competent. The left small saphenous vein is patent and incompetent. Ordering Physician: Goran Cotton Referring Physician: Arlyn Hartmann Performed By: Rachael Ambriz, RDCS, RVT
[2018-09-04 12:27] LABS: Hematocrit 34.4 % (37-47); Hemoglobin 10.8 g/dl (12.0-15.0); Mean Corp Hgb Conc 31.4 g/gl (32-36); Mean Corpuscular Hgb 28.9 pg (27.0-32.0); Mean Platelet Vol. 10.2 fl (6.2-12.0); Platelet Count 244 K/mm3 (150-450); RBC Distribution Width SD 42.3 fl (35.1-43.9); Red Blood Count 3.74 M/mm3 (4.2-5.4); White Blood Count 8.4 K/mm3 (4.4-11.0)
[2018-09-04 12:35] LABS: Scan Indicated on CBC? Y/N NO
[2018-09-04 12:52] LABS: AST(SGOT) 12 U/L (15-37); Alanine Aminotransfer ALT/SGPT 20 U/L (13-56); Albumin, Serum 3.2 g/dL (3.2-5.0); Alkaline Phosphatase 132 U/L (45-117); Anion Gap 8 (5-15); BUN 11 mg/dL (7-18); Calcium,Total 8.3 mg/dL (8.5-10.1); Chloride 107 mmol/L (98-107); Creatinine, Serum 0.78 mg/dL (0.55-1.02); EST Glomerular Filtration Rate 76 mL/min (>60); Est Glom Filt Rate - Afr Amer 92 mL/min (>60); Estimated Creatinine Clearance 36.68 ml/min; Globulin 3.3 g/dL (2.2-4.2); Glucose 125 mg/dL (74-106); Hemoglobin A1c 6.6 % (4.2-6.3); Potassium 4.3 mmol/L (3.5-5.1); Prealbumin 25.6 mg/dL (20.0-40.0); Protein, Total 6.5 g/dL (6.4-8.2); Sodium Level 144 mmol/L (136-145)
--- NOTE | 2018-09-13 18:53 | LEAS_ITS ---
Arterial Study - Arterial Study Arterial Study: This is a 77-year-old female with a history of hypertension, hyperlipidemia, diabetes mellitus, gastroesophageal reflux disease, and skin changes of the lower extremities. Suspecting the presence of atherosclerotic peripheral arterial occlusive disease, the patient was brought to the noninvasive vascular laboratory at this time for the purpose of bilateral noninvasive lower extremity arterial assessment. Doppler signal assessment was used to evaluate the pulses at ankle level bilaterally. The posterior tibial pulses were triphasic bilaterally. The dorsalis pedis pulses were biphasic bilaterally. Segmental limb pressures were obtained bilaterally. The right calf pressure was measured at 167 mmHg. The right ankle pressure, as determined by posterior tibial pulse, was measured at 116 mmHg. The right ankle pressure, as determined by dorsalis pedis pulse, was measured at 155 mmHg. The right digital pressure was measured at 127 mmHg. The left calf pressure was measured at 151 mmHg. The left ankle pressure, as determined by posterior tibial pulse, was measured at 142 mmHg. The left ankle pressure, as determined by dorsalis pedis pulse, was measured at 115 mmHg. The left digital pressure was measured at 54 mmHg. Pulse?volume recordings were obtained bilaterally and segmentally. Waveform amplitudes appeared to be satisfactory at all levels bilaterally, but for the left digital level, which was mildly diminished. Resting ankle?brachial indices were calculated bilaterally. The resting right ankle?brachial index was calculated to be 1.15. The resting left ankle?brachial index was calculated to be 1.05. Digital?brachial indices were calculated bilaterally. The right digital- brachial index was calculated to be 0.94. The left digital-brachial index was calculated to be 0.40. Impression: Based upon the findings of this resting noninvasive lower extremity arterial study, arterial flow to ankle level appears to be relatively normal bilaterally. Triphasic and biphasic waveforms were noted at ankle level bilaterally. Resting ankle?brachial indices are bilaterally normal. The right digital-brachial index is also normal, suggesting relatively normal arterial flow to digital level on the right. 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 Clinical correlation is advised.
== END 2018-09-11 23:59 ==
LOC: CVS 09:00
PROVIDERS: Family Provider Nurse Practitioner Primary Care; PCP Nurse Practitioner Primary Care; Visit Provider Surgery
DX: I83.022 Varicose veins of left lower extremity with ulcer of calf (principal); M79.89 Other specified soft tissue disorders; L97.221 Non-pressure chronic ulcer of left calf limited to breakdown of skin; K21.9 Gastro-esophageal reflux disease without esophagitis; E78.5 Hyperlipidemia, unspecified; E11.42 Type 2 diabetes mellitus with diabetic polyneuropathy; E11.622 Type 2 diabetes mellitus with other skin ulcer; I10 Essential (primary) hypertension
CPT/HCPCS: 29580; 36415; 80053; 83036; 84134; 85027; 93923; 93970; 99211; 99213; G0463

== ENCOUNTER → 2020-04-28 14:22 | Outpatient (CLI) | payer MEDICARE, SELFPAY ==
[2018-09-01 10:23] VITALS: BMI 30.6
--- NOTE | 2020-04-28 14:29 | RAD_ITS ---
STUDY: X-RAY - LEFT HAND REASON FOR EXAM: Female, 79 years old. RA TECHNIQUE: 3 view(s) of the hand. COMPARISON: None. FINDINGS: No definite evidence for active erosive arthropathy. Degenerative changes of the second metacarpal without joint. Severe diffuse demineralization. There is diffuse demineralization of the carpal bones. Normal carpal articulations Normal carpometacarpal articulation of the thumb. Normal second through fifth carpometacarpal joints. Normal metacarpi. Normal metacarpophalangeal joint of the thumb. Normal interphalangeal joint of the thumb. Normal proximal and distal phalanges of the thumb. There is mild diffuse articular joint space narrowing of the proximal and distal interphalangeal joints of the second through fifth fingers, but without erosive changes or periarticular soft tissue swelling. Normal phalanges of the second through fifth fingers. The soft tissue structures are unremarkable. RAD/Hand Min 3 Views IMPRESSION: No definite acute erosive arthropathy. Diffuse demineralization. Relatively mild degenerative changes. Electronically Signed: Casey Zabala MD at 18:35 EDT , Service support ,
--- NOTE | 2020-04-28 14:29 | RAD_ITS ---
STUDY: X-RAY - RIGHT HAND REASON FOR EXAM: Female, 79 years old. RA TECHNIQUE: 3 view(s) of the hand. COMPARISON: None. FINDINGS: No definite evidence for active erosive arthropathy. Degenerative changes of the second metacarpal without joint. Severe diffuse demineralization. Normal radiocarpal articulation. Normal distal radioulnar joint. There is diffuse demineralization of the carpal bones. Normal carpal articulations Normal carpometacarpal articulation of the thumb. Normal metacarpi. Normal metacarpophalangeal joint of the thumb. Normal interphalangeal joint of the thumb. Normal proximal and distal phalanges of the thumb. There is mild diffuse articular joint space narrowing of the proximal and distal interphalangeal joints of the second through fifth fingers, but without erosive changes or periarticular soft tissue swelling. Normal phalanges of the second through fifth fingers. The soft tissue structures are unremarkable. RAD/Hand Min 3 Views IMPRESSION: No definite acute erosive arthropathy. Diffuse demineralization. Relatively mild degenerative changes. Electronically Signed: Casey Zabala MD at 18:32 EDT , Service support ,
[2020-04-28 17:42] LABS: Absolute Lymphocyte Count 1.99 X10^3/uL (0.83-4.51); Absolute Neutrophil Count 6.2 X10^3/uL (2.0-7.7); Basophil# 0.05 X10^3/uL; Basophil% 0.5 % (0-1); Eosinophil# 1.54 X10^3/uL; Eosinophils% 14.7 % (0-5); Hemoglobin 11.3 g/dL (12.0-15.0); Lymphocyte # 1.99 X10^3/ul (4.0); Mean Corp Hgb Conc 31.4 g/dL (32-36); Mean Corpuscular Hgb 28.5 pg (27.0-32.0); Mean Corpuscular Volume 90.7 fL (81-99); Mean Platelet Vol. 9.6 fl (6.2-12.0); Monocyte# 0.69 X10^3/uL; Monocyte% 6.6 % (0-10); NRBC Flagged by Analyzer 0 % (0-5); Neutrophil # 6.18 X10^3/uL (2.7-7.7); Platelet Count 302 K/mm3 (150-450); RBC Distribution Width CV 13.1 % (11.6-14.6); RBC Distribution Width SD 42.9 fl (35.1-43.9); Red Blood Count 3.97 M/mm3 (4.2-5.4); White Blood Count 10.5 K/mm3 (4.4-11.0)
[2020-04-28 18:40] LABS: AST(SGOT) 21 U/L (15-37); Alanine Aminotransfer ALT/SGPT 32 U/L (13-56); Albumin, Serum 3.5 g/dL (3.2-5.0); Alkaline Phosphatase 111 U/L (45-117); Anion Gap 6 (5-15); BUN 10 mg/dL (7-18); BUN/Creat Ratio 12.9 RATIO (10-20); Calcium,Total 8.5 mg/dL (8.5-10.1); Chloride 106 mmol/L (98-107); Creatinine, Serum 0.78 mg/dL (0.55-1.02); EST Glomerular Filtration Rate 77 mL/min (>60); Est Glom Filt Rate - Afr Amer 93 mL/min (>60); Globulin 3.6 g/dL (2.2-4.2); Glucose 120 mg/dL (74-106); Potassium 3.7 mmol/L (3.5-5.1); Protein, Total 7.1 g/dL (6.4-8.2); Sodium Level 138 mmol/L (136-145)
[2020-05-01 09:26] LABS: Hepatitis B Surface Antibody Non-Reactive; Hepatitis B Surface Antigen Non-Reactive (Nonreactive); Hepatitis C Antibody Non-Reactive (Nonreactive)
[2020-05-01 12:42] LABS: ANTINUCLEAR ANTIBODIES DIRECT Positive (Negative)
[2020-05-03 03:07] LABS: QNTFERON TB Mitogen Value > 10.00 IU/mL (.); QNTFERON TB Nil Value 0.05 IU/mL (.); QNTFERON TB1+ Ag Value 0.52 IU/mL (.); QNTFERON TB2+ Ag Value 0.73 IU/mL (.)
[2020-05-03 03:48] LABS: CCP IgG Antibodies > 250 units (0-19); Hepatitis B Core AB IgM Negative (Negative); QNTIFERON TB Positive Criteria Positive (Negative)
== END ==
PROVIDERS: PCP Nurse Practitioner Primary Care; Referring Provider Internal Medicine Rheumatology; Visit Provider Internal Medicine Rheumatology
DX: M05.79 Rheumatoid arthritis with rheumatoid factor of multiple sites without organ or systems involvement (principal); M17.0 Bilateral primary osteoarthritis of knee; M21.41 Flat foot [pes planus] (acquired), right foot; K21.9 Gastro-esophageal reflux disease without esophagitis; G25.81 Restless legs syndrome; M81.0 Age-related osteoporosis without current pathological fracture; I10 Essential (primary) hypertension; E11.42 Type 2 diabetes mellitus with diabetic polyneuropathy; E78.5 Hyperlipidemia, unspecified; J45.909 Unspecified asthma, uncomplicated
CPT/HCPCS: 36415; 73130; 80053; 85025; 86038; 86200; 86431; 86480; 86705; 86706; 86803; 87340

== ENCOUNTER → 2020-05-10 12:15 | Outpatient (CLI) | payer MEDICARE, SELFPAY ==
[2018-09-01 10:23] VITALS: BMI 30.6
[2020-05-10 13:20] LABS: EXAGEN MAILED SPECIMEN
[2020-05-10 15:45] LABS: Color, Urine Yellow (Yellow); Glucose, Dipstick Normal (Normal); Ketone-Dipstick Negative (Negative); Leukocyte Esterase-Dipstick 25 /ul (Negative); Nitrite-Dipstick Negative (Negative); Occult Blood-Urine Negative /ul (Negative); Protein-Dipstick Negative (Negative); Urine Bilirubin Dipstick Negative (Negative); Urine Clarity Clear (Clear); Urine Urobilinogen Normal (Normal)
[2020-05-10 15:50] LABS: Protein, Urine (Random) 17.8 mg/dL (<11.9); Protein:Creat Ratio 432 mg/g CRE (0-200)
== END ==
PROVIDERS: PCP Nurse Practitioner Primary Care; Referring Provider Internal Medicine Rheumatology; Visit Provider Internal Medicine Rheumatology
DX: M05.79 Rheumatoid arthritis with rheumatoid factor of multiple sites without organ or systems involvement (principal); R76.8 Other specified abnormal immunological findings in serum; M17.0 Bilateral primary osteoarthritis of knee; M21.41 Flat foot [pes planus] (acquired), right foot; K21.9 Gastro-esophageal reflux disease without esophagitis; G25.81 Restless legs syndrome; M81.0 Age-related osteoporosis without current pathological fracture; I10 Essential (primary) hypertension; E11.42 Type 2 diabetes mellitus with diabetic polyneuropathy; E78.5 Hyperlipidemia, unspecified; J45.909 Unspecified asthma, uncomplicated; I89.0 Lymphedema, not elsewhere classified
CPT/HCPCS: 81002; 82570; 84156

== ENCOUNTER → 2020-05-23 12:24 | Outpatient (CLI) | payer MEDICARE, SELFPAY ==
[2018-09-01 10:23] VITALS: BMI 30.6
[2020-05-26 03:06] LABS: QNTFERON TB Mitogen Value > 10.00 IU/mL (.); QNTFERON TB Nil Value 0.08 IU/mL (.); QNTFERON TB1+ Ag Value 1.19 IU/mL (.); QNTFERON TB2+ Ag Value 1.45 IU/mL (.)
[2020-05-26 04:43] LABS: QNTIFERON TB Positive Criteria Positive (Negative)
== END ==
PROVIDERS: PCP Nurse Practitioner Primary Care; Referring Provider Internal Medicine Rheumatology; Visit Provider Internal Medicine Rheumatology
DX: M05.79 Rheumatoid arthritis with rheumatoid factor of multiple sites without organ or systems involvement (principal); R76.8 Other specified abnormal immunological findings in serum; M17.0 Bilateral primary osteoarthritis of knee; M21.41 Flat foot [pes planus] (acquired), right foot; K21.9 Gastro-esophageal reflux disease without esophagitis; G25.81 Restless legs syndrome; M81.0 Age-related osteoporosis without current pathological fracture; I10 Essential (primary) hypertension; E11.42 Type 2 diabetes mellitus with diabetic polyneuropathy; E78.5 Hyperlipidemia, unspecified; J45.909 Unspecified asthma, uncomplicated; I89.0 Lymphedema, not elsewhere classified
CPT/HCPCS: 36415; 86480

== ENCOUNTER → 2020-08-02 10:41 | Outpatient (CLI) | payer MEDICARE, SELFPAY ==
[2018-09-01 10:23] VITALS: BMI 30.6
[2020-08-02 12:33] LABS: Protein:Creat Ratio 1440 mg/g CRE (0-200)
[2020-08-02 12:45] LABS: Color, Urine Yellow (Yellow); Glucose, Dipstick 250 mg/dl (Normal); Ketone-Dipstick Negative (Negative); Leukocyte Esterase-Dipstick Negative /ul (Negative); Nitrite-Dipstick Negative (Negative); Occult Blood-Urine Negative /ul (Negative); Protein-Dipstick 30 mg/dl (Negative); Urine Bilirubin Dipstick Negative (Negative); Urine Clarity Clear (Clear); Urine Urobilinogen Normal (Normal)
[2020-08-02 12:49] LABS: AST(SGOT) 69 U/L (15-37); Alanine Aminotransfer ALT/SGPT 162 U/L (13-56); Albumin, Serum 3.4 g/dL (3.2-5.0); Alkaline Phosphatase 93 U/L (45-117); Anion Gap 9 (5-15); BUN 12 mg/dL (7-18); BUN/Creat Ratio 15.4 RATIO (10-20); Calcium,Total 7.9 mg/dL (8.5-10.1); Chloride 99 mmol/L (98-107); Creatinine, Serum 0.78 mg/dL (0.55-1.02); EST Glomerular Filtration Rate 76 mL/min (>60); Est Glom Filt Rate - Afr Amer 92 mL/min (>60); Globulin 3.5 g/dL (2.2-4.2); Glucose 189 mg/dL (74-106); Potassium 3.5 mmol/L (3.5-5.1); Protein, Total 6.9 g/dL (6.4-8.2); Sodium Level 139 mmol/L (136-145)
[2020-08-02 12:51] LABS: Absolute Lymphocyte Count 0.85 X10^3/uL (0.83-4.51); Absolute Neutrophil Count 8.4 X10^3/uL (2.0-7.7); Basophil# 0.01 X10^3/uL; Basophil% 0.1 % (0-1); Eosinophil# 0.04 X10^3/uL; Eosinophils% 0.4 % (0-5); Hematocrit 35.2 % (37-47); Hemoglobin 11.2 g/dL (12.0-15.0); Lymphocyte # 0.85 X10^3/ul (4.0); Lymphocyte % 8.9 % (19-41); Mean Corp Hgb Conc 31.8 g/dL (32-36); Mean Corpuscular Hgb 29.9 pg (27.0-32.0); Mean Corpuscular Volume 94.1 fL (81-99); Mean Platelet Vol. 10.5 fl (6.2-12.0); Monocyte# 0.22 X10^3/uL; Monocyte% 2.3 % (0-10); NRBC Flagged by Analyzer 0 % (0-5); Neutrophil # 8.35 X10^3/uL (2.7-7.7); Neutrophil % 87.7 % (47-70); Platelet Count 270 K/mm3 (150-450); RBC Distribution Width CV 15.2 % (11.6-14.6); RBC Distribution Width SD 50.5 fl (35.1-43.9); Red Blood Count 3.74 M/mm3 (4.2-5.4); White Blood Count 9.5 K/mm3 (4.4-11.0)
== END ==
PROVIDERS: PCP Nurse Practitioner Primary Care; Referring Provider Internal Medicine Rheumatology; Visit Provider Internal Medicine Rheumatology
DX: M05.79 Rheumatoid arthritis with rheumatoid factor of multiple sites without organ or systems involvement (principal); R76.8 Other specified abnormal immunological findings in serum; M17.0 Bilateral primary osteoarthritis of knee; M21.41 Flat foot [pes planus] (acquired), right foot; K21.9 Gastro-esophageal reflux disease without esophagitis; G25.81 Restless legs syndrome; Z79.899 Other long term (current) drug therapy
CPT/HCPCS: 36415; 80053; 81002; 82570; 84156; 85025

== ENCOUNTER → 2020-09-05 10:02 | Outpatient (CLI) | payer MEDICARE, SELFPAY ==
[2018-09-01 10:23] VITALS: BMI 30.6
--- NOTE | 2020-09-05 10:07 | US_ITS ---
STUDY: ABDOMINAL ULTRASOUND - RIGHT UPPER QUADRANT REASON FOR VISIT: Female, 79 years old ELEVATED LIVER ENZYMES TECHNIQUE: Ultrasound evaluation of the right upper quadrant was performed with real-time and static pace-scale imaging. TECHNICAL QUALITY: Adequate. COMPARISON: None. FINDINGS: Liver: The liver measures 16 cm. There is increased echogenicity of the liver. The bile ducts are within normal limits. There is hepatic color flow. The direction of portal flow is hepatopetal. There is no demonstrated mass lesion. Gallbladder: Normal distended gallbladder. The gallbladder wall measures 2.3 mm. There is a negative sonographic Patel''s sign. There is no pericholecystic fluid. There are no gallstones. Common Bile Duct (C.B.D.): The common bile duct measures 7 mm. Pancreas: There is no demonstrated pancreatic mass or cyst. Right Kidney: Normal size of the right kidney. The right kidney measures 10.2 x 5.6 x 4.4 cm. Normal renal cortex. The right cortex measures 1.1 cm. There is no demonstrated renal mass or cyst. There is no right hydronephrosis. US/Liver IMPRESSION: 1. No gallstones or biliary dilation. 2. Increased echogenicity of the liver is nonspecific but most commonly associated with hepatic steatosis. Electronically Signed: Nigel Escobedo MD ([place]) at 18:58 EST , Service support ,
== END ==
PROVIDERS: PCP Nurse Practitioner Primary Care; Referring Provider Internal Medicine Rheumatology; Visit Provider Internal Medicine Rheumatology
DX: M05.79 Rheumatoid arthritis with rheumatoid factor of multiple sites without organ or systems involvement (principal); R76.8 Other specified abnormal immunological findings in serum; M17.0 Bilateral primary osteoarthritis of knee; M21.41 Flat foot [pes planus] (acquired), right foot; K21.9 Gastro-esophageal reflux disease without esophagitis; G25.81 Restless legs syndrome; M81.0 Age-related osteoporosis without current pathological fracture; I10 Essential (primary) hypertension; E11.42 Type 2 diabetes mellitus with diabetic polyneuropathy; E78.5 Hyperlipidemia, unspecified; I89.0 Lymphedema, not elsewhere classified; J45.909 Unspecified asthma, uncomplicated; Z79.899 Other long term (current) drug therapy
CPT/HCPCS: 76705

== ENCOUNTER → 2020-09-06 08:30 | Outpatient (CLI) | payer MEDICARE, SELFPAY ==
[2018-09-01 10:23] VITALS: BMI 30.6
[2020-09-06 10:41] LABS: AST(SGOT) 33 U/L (15-37); Alanine Aminotransfer ALT/SGPT 45 U/L (13-56); Albumin, Serum 3.3 g/dL (3.2-5.0); Alkaline Phosphatase 134 U/L (45-117); Anion Gap 5 (5-15); BUN 14 mg/dL (7-18); Calcium,Total 8.3 mg/dL (8.5-10.1); Chloride 105 mmol/L (98-107); Creatinine, Serum 0.93 mg/dL (0.55-1.02); EST Glomerular Filtration Rate 62 mL/min (>60); Est Glom Filt Rate - Afr Amer 75 mL/min (>60); Globulin 3.3 g/dL (2.2-4.2); Glucose 223 mg/dL (74-106); Potassium 4.4 mmol/L (3.5-5.1); Protein, Total 6.6 g/dL (6.4-8.2); Sodium Level 136 mmol/L (136-145)
== END ==
PROVIDERS: PCP Nurse Practitioner Primary Care; Referring Provider Internal Medicine Rheumatology; Visit Provider Internal Medicine Rheumatology
DX: M05.79 Rheumatoid arthritis with rheumatoid factor of multiple sites without organ or systems involvement (principal); R76.8 Other specified abnormal immunological findings in serum; M17.0 Bilateral primary osteoarthritis of knee; M21.41 Flat foot [pes planus] (acquired), right foot; K21.9 Gastro-esophageal reflux disease without esophagitis; G25.81 Restless legs syndrome; M81.0 Age-related osteoporosis without current pathological fracture; I10 Essential (primary) hypertension; E11.42 Type 2 diabetes mellitus with diabetic polyneuropathy; E78.5 Hyperlipidemia, unspecified; I89.0 Lymphedema, not elsewhere classified; J45.909 Unspecified asthma, uncomplicated; Z79.899 Other long term (current) drug therapy
CPT/HCPCS: 36415; 80053

== ENCOUNTER → 2020-09-15 12:13 | Outpatient (CLI) | payer MEDICARE, SELFPAY ==
[2018-09-01 10:23] VITALS: BMI 30.6
== END ==
PROVIDERS: Visit Provider Internal Medicine Rheumatology
DX: M05.70 Rheumatoid arthritis with rheumatoid factor of unspecified site without organ or systems involvement (principal); R76.8 Other specified abnormal immunological findings in serum; M17.0 Bilateral primary osteoarthritis of knee; M21.41 Flat foot [pes planus] (acquired), right foot; K76.0 Fatty (change of) liver, not elsewhere classified; K21.9 Gastro-esophageal reflux disease without esophagitis; G25.81 Restless legs syndrome; M81.0 Age-related osteoporosis without current pathological fracture; I10 Essential (primary) hypertension; E11.42 Type 2 diabetes mellitus with diabetic polyneuropathy; E78.5 Hyperlipidemia, unspecified; I89.0 Lymphedema, not elsewhere classified; J45.909 Unspecified asthma, uncomplicated; Z79.899 Other long term (current) drug therapy

== ENCOUNTER → 2020-12-11 10:32 | Outpatient (CLI) | payer MEDICARE, SELFPAY ==
[2018-09-01 10:23] VITALS: BMI 30.6
[2020-12-11 10:44] LABS: Bacteria 0 SEEN /hpf (None Seen); Mucous, Urine 0 SEEN /hpf (<or=2+); Red Blood Cells-Urine 0 SEEN /hpf (0-5); Squamous Epithelial Cells - UA 0 SEEN /hpf (5-10); White Blood Cells 0 SEEN /hpf (0-5)
[2020-12-11 12:15] LABS: Color, Urine Yellow (Yellow); Glucose, Dipstick Normal (Normal); Ketone-Dipstick Negative (Negative); Leukocyte Esterase-Dipstick Negative /ul (Negative); Nitrite-Dipstick Negative (Negative); Occult Blood-Urine Negative /ul (Negative); Protein-Dipstick Negative (Negative); Urine Bilirubin Dipstick Negative (Negative); Urine Clarity Clear (Clear); Urine Urobilinogen Normal (Normal)
[2020-12-11 12:19] LABS: Absolute Neutrophil Count 6.1 X10^3/uL (2.0-7.7); Basophil# 0.05 X10^3/uL; Basophil% 0.5 % (0-1); Eosinophil# 1.15 X10^3/uL; Eosinophils% 11.2 % (0-5); Hematocrit 37.3 % (37-47); Hemoglobin 12.9 g/dL (12.0-15.0); Lymphocyte % 20.4 % (19-41); Mean Corp Hgb Conc 34.6 g/dL (32-36); Mean Corpuscular Hgb 32.1 pg (27.0-32.0); Mean Corpuscular Volume 92.8 fL (81-99); Mean Platelet Vol. 10.5 fl (6.2-12.0); Monocyte# 0.84 X10^3/uL; Monocyte% 8.2 % (0-10); NRBC Flagged by Analyzer 0 % (0-5); Neutrophil # 6.12 X10^3/uL (2.7-7.7); Neutrophil % 59.3 % (47-70); Platelet Count 230 K/mm3 (150-450); RBC Distribution Width CV 12.2 % (11.6-14.6); RBC Distribution Width SD 40.6 fl (35.1-43.9); Red Blood Count 4.02 M/mm3 (4.2-5.4); White Blood Count 10.3 K/mm3 (4.4-11.0)
[2020-12-11 12:31] LABS: Protein, Urine (Random) 9.5 mg/dL (<11.9); Protein:Creat Ratio 258 mg/g CRE (0-200)
[2020-12-11 12:39] LABS: PTHIN 52.9 pg/mL (18.4-80.1)
[2020-12-11 12:41] LABS: AST(SGOT) 37 U/L (15-37); Alanine Aminotransfer ALT/SGPT 54 U/L (13-56); Albumin, Serum 3.5 g/dL (3.2-5.0); Alkaline Phosphatase 117 U/L (45-117); Anion Gap 9 (5-15); BUN 14 mg/dL (7-18); BUN/Creat Ratio 16.4 RATIO (10-20); Calcium,Total 9.2 mg/dL (8.5-10.1); Chloride 102 mmol/L (98-107); Creatinine, Serum 0.85 mg/dL (0.55-1.02); EST Glomerular Filtration Rate 69 mL/min (>60); Est Glom Filt Rate - Afr Amer 83 mL/min (>60); Globulin 3.5 g/dL (2.2-4.2); Glucose 142 mg/dL (74-106); Phosphorus 3.2 mg/dL (2.5-4.9); Potassium 4.3 mmol/L (3.5-5.1); Sodium Level 137 mmol/L (136-145)
== END ==
PROVIDERS: PCP Nurse Practitioner Primary Care; Referring Provider Internal Medicine Rheumatology; Visit Provider Internal Medicine Rheumatology
DX: M05.70 Rheumatoid arthritis with rheumatoid factor of unspecified site without organ or systems involvement (principal); R76.8 Other specified abnormal immunological findings in serum; M17.0 Bilateral primary osteoarthritis of knee; M21.41 Flat foot [pes planus] (acquired), right foot; K76.0 Fatty (change of) liver, not elsewhere classified; K21.9 Gastro-esophageal reflux disease without esophagitis; G25.81 Restless legs syndrome; M81.0 Age-related osteoporosis without current pathological fracture; I10 Essential (primary) hypertension; E11.42 Type 2 diabetes mellitus with diabetic polyneuropathy; E78.5 Hyperlipidemia, unspecified; I89.0 Lymphedema, not elsewhere classified; J45.909 Unspecified asthma, uncomplicated; Z79.899 Other long term (current) drug therapy
CPT/HCPCS: 36415; 80053; 81001; 82570; 83970; 84100; 84156; 85025

== ENCOUNTER → 2021-01-16 12:57 | Outpatient (CLI) | payer MEDICARE, SELFPAY ==
[2018-09-01 10:23] VITALS: BMI 30.6
[2021-01-16 15:23] LABS: Absolute Lymphocyte Count 2.13 X10^3/uL (0.83-4.51); Absolute Neutrophil Count 5.2 X10^3/uL (2.0-7.7); Basophil# 0.03 X10^3/uL; Basophil% 0.4 % (0-1); Eosinophil# 0.38 X10^3/uL; Eosinophils% 4.5 % (0-5); Hematocrit 36.6 % (37-47); Hemoglobin 11.3 g/dL (12.0-15.0); Lymphocyte # 2.13 X10^3/ul (4.0); Lymphocyte % 25.1 % (19-41); Mean Corp Hgb Conc 30.9 g/dL (32-36); Mean Corpuscular Hgb 29.3 pg (27.0-32.0); Mean Corpuscular Volume 94.8 fL (81-99); Mean Platelet Vol. 10.4 fl (6.2-12.0); Monocyte# 0.73 X10^3/uL; Monocyte% 8.6 % (0-10); NRBC Flagged by Analyzer 0 % (0-5); Neutrophil # 5.17 X10^3/uL (2.7-7.7); Platelet Count 251 K/mm3 (150-450); RBC Distribution Width CV 12.3 % (11.6-14.6); RBC Distribution Width SD 42.2 fl (35.1-43.9); Red Blood Count 3.86 M/mm3 (4.2-5.4); White Blood Count 8.5 K/mm3 (4.4-11.0)
[2021-01-16 15:49] LABS: ALB/GLOB Ratio 1.1 RATIO (0.9-2.4); AST(SGOT) 42 U/L (15-37); Alanine Aminotransfer ALT/SGPT 68 U/L (13-56); Albumin, Serum 3.3 g/dL (3.2-5.0); Alkaline Phosphatase 96 U/L (45-117); Anion Gap 6 (5-15); BUN 14 mg/dL (7-18); BUN/Creat Ratio 15.3 RATIO (10-20); Calcium,Total 8.2 mg/dL (8.5-10.1); Chloride 101 mmol/L (98-107); Creatinine, Serum 0.91 mg/dL (0.55-1.02); EST Glomerular Filtration Rate 63 mL/min (>60); Est Glom Filt Rate - Afr Amer 77 mL/min (>60); Globulin 3.1 g/dL (2.2-4.2); Glucose 192 mg/dL (74-106); Potassium 4.5 mmol/L (3.5-5.1); Protein, Total 6.4 g/dL (6.4-8.2); Sodium Level 136 mmol/L (136-145)
== END ==
PROVIDERS: PCP Nurse Practitioner Primary Care; Referring Provider Internal Medicine Rheumatology; Visit Provider Internal Medicine Rheumatology
DX: M05.70 Rheumatoid arthritis with rheumatoid factor of unspecified site without organ or systems involvement (principal); R76.8 Other specified abnormal immunological findings in serum; M17.0 Bilateral primary osteoarthritis of knee; M21.41 Flat foot [pes planus] (acquired), right foot; K76.0 Fatty (change of) liver, not elsewhere classified; K21.9 Gastro-esophageal reflux disease without esophagitis; G25.81 Restless legs syndrome; M81.0 Age-related osteoporosis without current pathological fracture; I10 Essential (primary) hypertension; E11.42 Type 2 diabetes mellitus with diabetic polyneuropathy; E78.5 Hyperlipidemia, unspecified; I89.0 Lymphedema, not elsewhere classified; Z79.899 Other long term (current) drug therapy
CPT/HCPCS: 36415; 80053; 85025

== ENCOUNTER → 2021-04-19 12:54 | Outpatient (CLI) | payer MEDICARE, SELFPAY ==
[2018-09-01 10:23] VITALS: BMI 30.6
[2021-04-19 15:01] LABS: Absolute Lymphocyte Count 1.58 X10^3/uL (0.83-4.51); Absolute Neutrophil Count 6.6 X10^3/uL (2.0-7.7); Basophil# 0.06 X10^3/uL; Basophil% 0.6 % (0-1); Eosinophil# 1.32 X10^3/uL; Eosinophils% 12.8 % (0-5); Hematocrit 37.1 % (37-47); Hemoglobin 11.5 g/dL (12.0-15.0); Lymphocyte # 1.58 X10^3/ul (0.83-4.51); Lymphocyte % 15.4 % (19-41); Mean Corpuscular Hgb 29.3 pg (27.0-32.0); Mean Corpuscular Volume 94.6 fL (81-99); Mean Platelet Vol. 10.2 fl (6.2-12.0); Monocyte# 0.63 X10^3/uL; Monocyte% 6.1 % (0-10); NRBC Flagged by Analyzer 0 % (0-5); Neutrophil # 6.64 X10^3/uL (2.7-7.7); Neutrophil % 64.6 % (47-70); Platelet Count 252 K/mm3 (150-450); RBC Distribution Width CV 11.9 % (11.6-14.6); RBC Distribution Width SD 41.2 fl (35.1-43.9); Red Blood Count 3.92 M/mm3 (4.2-5.4); White Blood Count 10.3 K/mm3 (4.4-11.0)
[2021-04-19 15:10] LABS: AST(SGOT) 24 U/L (15-37); Alanine Aminotransfer ALT/SGPT 34 U/L (13-56); Albumin, Serum 3.4 g/dL (3.2-5.0); Alkaline Phosphatase 88 U/L (45-117); Anion Gap 5 (5-15); BUN 14 mg/dL (7-18); BUN/Creat Ratio 14.3 RATIO (10-20); Calcium,Total 8.9 mg/dL (8.5-10.1); Chloride 103 mmol/L (98-107); Creatinine, Serum 0.98 mg/dL (0.55-1.02); EST Glomerular Filtration Rate 58 mL/min (>60); Est Glom Filt Rate - Afr Amer 70 mL/min (>60); Globulin 3.5 g/dL (2.2-4.2); Glucose 156 mg/dL (74-106); Potassium 4.6 mmol/L (3.5-5.1); Protein, Total 6.9 g/dL (6.4-8.2); Sodium Level 136 mmol/L (136-145)
== END ==
PROVIDERS: PCP Nurse Practitioner Primary Care; Referring Provider Internal Medicine Rheumatology; Visit Provider Internal Medicine Rheumatology
DX: M05.79 Rheumatoid arthritis with rheumatoid factor of multiple sites without organ or systems involvement (principal); M17.0 Bilateral primary osteoarthritis of knee; M21.41 Flat foot [pes planus] (acquired), right foot; K76.0 Fatty (change of) liver, not elsewhere classified; K21.9 Gastro-esophageal reflux disease without esophagitis; G25.81 Restless legs syndrome; M81.0 Age-related osteoporosis without current pathological fracture; I10 Essential (primary) hypertension; E11.42 Type 2 diabetes mellitus with diabetic polyneuropathy; E78.5 Hyperlipidemia, unspecified; I89.0 Lymphedema, not elsewhere classified; J45.909 Unspecified asthma, uncomplicated; Z79.899 Other long term (current) drug therapy
CPT/HCPCS: 36415; 80053; 85025

== ENCOUNTER → 2021-07-20 10:10 | Outpatient (CLI) | payer MEDICARE, SELFPAY ==
[2018-09-01 10:23] VITALS: BMI 30.6
[2021-07-20 13:48] LABS: Protein, Urine (Random) 32.7 mg/dL (<11.9); Protein:Creat Ratio 644 mg/g CRE (0-200)
[2021-07-20 13:56] LABS: Albumin, Serum 3.3 g/dL (3.2-5.0); BUN 16 mg/dL (7-18); BUN/Creat Ratio 16.9 RATIO (10-20); Calcium,Total 8.7 mg/dL (8.5-10.1); Chloride 102 mmol/L (98-107); Creatinine, Serum 0.94 mg/dL (0.55-1.02); EST Glomerular Filtration Rate 61 mL/min (>60); Est Glom Filt Rate - Afr Amer 74 mL/min (>60); Glucose 203 mg/dL (74-106); Phosphorus 2.6 mg/dL (2.5-4.9); Potassium 5.2 mmol/L (3.5-5.1); Sodium Level 138 mmol/L (136-145)
== END ==
PROVIDERS: PCP Nurse Practitioner Primary Care; Referring Provider Internal Medicine Nephrology; Visit Provider Internal Medicine Nephrology
DX: N18.31 Chronic kidney disease, stage 3a (principal)
CPT/HCPCS: 36415; 80069; 82570; 84156

== ENCOUNTER → 2021-07-24 10:33 | Outpatient (CLI) | payer MEDICARE, SELFPAY ==
[2021-07-24 12:36] LABS: Absolute Lymphocyte Count 1.08 X10^3/uL (0.83-4.51); Basophil# 0.02 X10^3/uL; Basophil% 0.2 % (0-1); Eosinophil# 0.04 X10^3/uL; Eosinophils% 0.5 % (0-5); Hematocrit 36.4 % (37-47); Hemoglobin 11.7 g/dL (12.0-15.0); Lymphocyte # 1.08 X10^3/ul (0.83-4.51); Lymphocyte % 12.6 % (19-41); Mean Corp Hgb Conc 32.1 g/dL (32-36); Mean Corpuscular Hgb 29.5 pg (27.0-32.0); Mean Corpuscular Volume 91.9 fL (81-99); Mean Platelet Vol. 10.7 fl (6.2-12.0); Monocyte% 4.7 % (0-10); NRBC Flagged by Analyzer 0 % (0-5); Neutrophil # 6.96 X10^3/uL (2.7-7.7); Platelet Count 230 K/mm3 (150-450); RBC Distribution Width CV 11.9 % (11.6-14.6); RBC Distribution Width SD 39.9 fl (35.1-43.9); Red Blood Count 3.96 M/mm3 (4.2-5.4); White Blood Count 8.6 K/mm3 (4.4-11.0)
[2021-07-24 12:56] LABS: ALB/GLOB Ratio 0.9 RATIO (0.9-2.4); AST(SGOT) 15 U/L (15-37); Alanine Aminotransfer ALT/SGPT 28 U/L (13-56); Albumin, Serum 3.3 g/dL (3.2-5.0); Alkaline Phosphatase 95 U/L (45-117); Anion Gap 6 (5-15); BUN 20 mg/dL (7-18); BUN/Creat Ratio 19.2 RATIO (10-20); Calcium,Total 8.8 mg/dL (8.5-10.1); Chloride 102 mmol/L (98-107); Creatinine, Serum 1.04 mg/dL (0.55-1.02); EST Glomerular Filtration Rate 54 mL/min (>60); Est Glom Filt Rate - Afr Amer 66 mL/min (>60); Globulin 3.7 g/dL (2.2-4.2); Glucose 204 mg/dL (74-106); Potassium 4.9 mmol/L (3.5-5.1); Sodium Level 136 mmol/L (136-145)
== END ==
PROVIDERS: PCP Nurse Practitioner Primary Care; Referring Provider Internal Medicine Rheumatology; Visit Provider Internal Medicine Rheumatology
DX: M05.79 Rheumatoid arthritis with rheumatoid factor of multiple sites without organ or systems involvement (principal); R76.8 Other specified abnormal immunological findings in serum; M17.0 Bilateral primary osteoarthritis of knee; M21.41 Flat foot [pes planus] (acquired), right foot; K21.9 Gastro-esophageal reflux disease without esophagitis; G25.81 Restless legs syndrome; M81.0 Age-related osteoporosis without current pathological fracture; I10 Essential (primary) hypertension; E11.42 Type 2 diabetes mellitus with diabetic polyneuropathy; I89.0 Lymphedema, not elsewhere classified; M72.0 Palmar fascial fibromatosis [Dupuytren]; Z79.899 Other long term (current) drug therapy
CPT/HCPCS: 36415; 80053; 85025

== ENCOUNTER → 2021-09-05 11:14 | Outpatient (CLI) | payer MEDICARE, SELFPAY ==
[2021-09-05 12:21] LABS: Potassium 4.8 mmol/L (3.5-5.1)
== END ==
PROVIDERS: PCP Nurse Practitioner Primary Care; Visit Provider Internal Medicine Nephrology
DX: E87.5 Hyperkalemia (principal)
CPT/HCPCS: 36415; 84132

== ENCOUNTER → 2022-02-19 | Outpatient (CLI) | payer MEDICARE, SELFPAY ==
[2022-02-19 15:37] LABS: Absolute Lymphocyte Count 1.74 X10^3/uL (0.83-4.51); Absolute Neutrophil Count 4.6 X10^3/uL (2.0-7.7); Basophil# 0.04 X10^3/uL; Basophil% 0.5 % (0-1); Eosinophil# 0.44 X10^3/uL; Eosinophils% 5.8 % (0-5); Hematocrit 35.1 % (37-47); Hemoglobin 11.5 g/dL (12.0-15.0); Lymphocyte # 1.74 X10^3/ul (0.83-4.51); Mean Corp Hgb Conc 32.8 g/dL (32-36); Mean Corpuscular Hgb 30.3 pg (27.0-32.0); Mean Corpuscular Volume 92.4 fL (81-99); Mean Platelet Vol. 10.1 fl (6.2-12.0); Monocyte# 0.67 X10^3/uL; Monocyte% 8.9 % (0-10); NRBC Flagged by Analyzer 0 % (0-5); Neutrophil # 4.63 X10^3/uL (2.7-7.7); Neutrophil % 61.3 % (47-70); Platelet Count 283 K/mm3 (150-450); RBC Distribution Width SD 40.8 fl (35.1-43.9); White Blood Count 7.6 K/mm3 (4.4-11.0)
[2022-02-19 15:47] LABS: ALB/GLOB Ratio 1.1 RATIO (0.9-2.4); AST(SGOT) 19 U/L (15-37); Alanine Aminotransfer ALT/SGPT 25 U/L (13-56); Albumin, Serum 3.6 g/dL (3.2-5.0); Alkaline Phosphatase 107 U/L (45-117); Anion Gap 6 (5-15); BUN 17 mg/dL (7-18); BUN/Creat Ratio 19.5 RATIO (10-20); CRP 3.19 mg/L (0.0-3.0); Chloride 104 mmol/L (98-107); Creatinine, Serum 0.87 mg/dL (0.55-1.02); EST Glomerular Filtration Rate 67 mL/min (>60); Est Glom Filt Rate - Afr Amer 81 mL/min (>60); Globulin 3.3 g/dL (2.2-4.2); Glucose 64 mg/dL (74-106); Potassium 4.5 mmol/L (3.5-5.1); Protein, Total 6.9 g/dL (6.4-8.2); Sodium Level 138 mmol/L (136-145)
[2022-02-19 16:04] LABS: Erythrocyte Sedimentation Rate 8 mm/hr (0-30)
== END | disposition home or self-care (01) ==
PROVIDERS: PCP Nurse Practitioner Primary Care; Referring Provider Internal Medicine Rheumatology; Visit Provider Internal Medicine Rheumatology
DX: M05.79 Rheumatoid arthritis with rheumatoid factor of multiple sites without organ or systems involvement (principal); R76.8 Other specified abnormal immunological findings in serum; M17.0 Bilateral primary osteoarthritis of knee; K76.0 Fatty (change of) liver, not elsewhere classified; K21.9 Gastro-esophageal reflux disease without esophagitis; E78.5 Hyperlipidemia, unspecified; Z79.899 Other long term (current) drug therapy
CPT/HCPCS: 36415; 80053; 85025; 85652; 86140

== ENCOUNTER → 2022-05-15 | Outpatient (CLI) | payer MEDICARE, SELFPAY ==
[2022-05-15 17:06] LABS: Protein, Urine (Random) 12.6 mg/dL (<11.9); Protein:Creat Ratio 508 mg/g CRE (0-200)
[2022-05-15 18:29] LABS: Albumin, Serum 3.6 g/dL (3.2-5.0); BUN 12 mg/dL (7-18); Calcium,Total 8.6 mg/dL (8.5-10.1); Chloride 100 mmol/L (98-107); Creatinine, Serum 0.86 mg/dL (0.55-1.02); EST Glomerular Filtration Rate 68 mL/min (>60); Est Glom Filt Rate - Afr Amer 82 mL/min (>60); Glucose 125 mg/dL (74-106); Phosphorus 2.7 mg/dL (2.5-4.9); Potassium 4.5 mmol/L (3.5-5.1); Sodium Level 135 mmol/L (136-145)
== END | disposition home or self-care (01) ==
LOC: LAB 14:49
PROVIDERS: PCP Nurse Practitioner Primary Care; Visit Provider Internal Medicine Nephrology
DX: E11.22 Type 2 diabetes mellitus with diabetic chronic kidney disease (principal); N18.31 Chronic kidney disease, stage 3a
CPT/HCPCS: 36415; 80069; 82570; 84156

== ENCOUNTER → 2022-08-19 | Outpatient (CLI) | payer MEDICARE, SELFPAY ==
[2022-08-19 15:25] LABS: Basophil# 0.03 X10^3/uL; Basophil% 0.4 % (0-1); Eosinophil# 0.44 X10^3/uL; Eosinophils% 5.5 % (0-5); Hematocrit 32.5 % (37-47); Hemoglobin 9.9 g/dL (12.0-15.0); Lymphocyte % 21.1 % (19-41); Mean Corp Hgb Conc 30.5 g/dL (32-36); Mean Corpuscular Hgb 28.3 pg (27.0-32.0); Mean Corpuscular Volume 92.9 fL (81-99); Mean Platelet Vol. 10.1 fl (6.2-12.0); Monocyte# 0.88 X10^3/uL; Monocyte% 10.9 % (0-10); NRBC Flagged by Analyzer 0 % (0-5); Neutrophil # 4.98 X10^3/uL (2.7-7.7); Neutrophil % 61.6 % (47-70); Platelet Count 271 K/mm3 (150-450); RBC Distribution Width CV 12.4 % (11.6-14.6); RBC Distribution Width SD 42.4 fl (35.1-43.9); White Blood Count 8.1 K/mm3 (4.4-11.0)
[2022-08-19 15:44] LABS: Protein, Urine (Random) 36.7 mg/dL (<11.9); Protein:Creat Ratio 537 mg/g CRE (0-200)
[2022-08-19 15:53] LABS: ALB/GLOB Ratio 0.9 RATIO (0.9-2.4); AST(SGOT) 13 U/L (15-37); Alanine Aminotransfer ALT/SGPT 16 U/L (13-56); Albumin, Serum 3.2 g/dL (3.2-5.0); Alkaline Phosphatase 125 U/L (45-117); Anion Gap 6 (5-15); BUN 13 mg/dL (7-18); BUN/Creat Ratio 15.3 RATIO (10-20); Calcium,Total 8.6 mg/dL (8.5-10.1); Chloride 104 mmol/L (98-107); Creatinine, Serum 0.85 mg/dL (0.55-1.02); EST Glomerular Filtration Rate 69 mL/min (>60); Est Glom Filt Rate - Afr Amer 83 mL/min (>60); Globulin 3.5 g/dL (2.2-4.2); Glucose 119 mg/dL (74-106); Phosphorus 2.6 mg/dL (2.5-4.9); Potassium 4.4 mmol/L (3.5-5.1); Protein, Total 6.7 g/dL (6.4-8.2); Sodium Level 138 mmol/L (136-145)
== END | disposition home or self-care (01) ==
PROVIDERS: PCP Nurse Practitioner Primary Care; Referring Provider Internal Medicine Nephrology; Visit Provider Internal Medicine Nephrology
DX: M05.70 Rheumatoid arthritis with rheumatoid factor of unspecified site without organ or systems involvement (principal); E11.42 Type 2 diabetes mellitus with diabetic polyneuropathy; R76.8 Other specified abnormal immunological findings in serum; K76.0 Fatty (change of) liver, not elsewhere classified; K21.9 Gastro-esophageal reflux disease without esophagitis; I10 Essential (primary) hypertension; E78.5 Hyperlipidemia, unspecified; Z79.899 Other long term (current) drug therapy
CPT/HCPCS: 36415; 80053; 82570; 84100; 84156; 85025

== ENCOUNTER → 2023-02-11 | Outpatient (CLI) | payer MEDICARE, SELFPAY ==
[2023-02-11 12:20] LABS: Absolute Lymphocyte Count 1.77 X10^3/uL (0.83-4.51); Absolute Neutrophil Count 5.7 X10^3/uL (2.0-7.7); Basophil# 0.03 X10^3/uL; Basophil% 0.3 % (0-1); Eosinophil# 0.67 X10^3/uL; Eosinophils% 7.4 % (0-5); Hematocrit 36.6 % (37-47); Hemoglobin 11.1 g/dL (12.0-15.0); Lymphocyte # 1.77 X10^3/ul (0.83-4.51); Lymphocyte % 19.5 % (19-41); Mean Corp Hgb Conc 30.3 g/dL (32-36); Mean Corpuscular Hgb 28.5 pg (27.0-32.0); Mean Corpuscular Volume 93.8 fL (81-99); Mean Platelet Vol. 10.1 fl (6.2-12.0); Monocyte# 0.92 X10^3/uL; Monocyte% 10.1 % (0-10); NRBC Flagged by Analyzer 0 % (0-5); Neutrophil # 5.67 X10^3/uL (2.7-7.7); Neutrophil % 62.5 % (47-70); Platelet Count 257 K/mm3 (150-450); RBC Distribution Width CV 12.5 % (11.6-14.6); White Blood Count 9.1 K/mm3 (4.4-11.0)
[2023-02-11 12:45] LABS: ALB/GLOB Ratio 1.1 RATIO (0.9-2.4); AST(SGOT) 13 U/L (15-37); Alanine Aminotransfer ALT/SGPT 21 U/L (13-56); Albumin, Serum 3.6 g/dL (3.2-5.0); Alkaline Phosphatase 108 U/L (45-117); Anion Gap 6 (5-15); BUN 23 mg/dL (7-18); BUN/Creat Ratio 20.9 RATIO (10-20); Calcium,Total 8.7 mg/dL (8.5-10.1); Chloride 107 mmol/L (98-107); EST Glomerular Filtration Rate 51 mL/min (>60); Est Glom Filt Rate - Afr Amer 61 mL/min (>60); Globulin 3.4 g/dL (2.2-4.2); Glucose 102 mg/dL (74-106); Potassium 5.2 mmol/L (3.5-5.1); Sodium Level 139 mmol/L (136-145)
== END | disposition home or self-care (01) ==
LOC: MTLAB 10:29
PROVIDERS: PCP Nurse Practitioner Primary Care; Referring Provider Internal Medicine Rheumatology; Visit Provider Internal Medicine Rheumatology
DX: M05.70 Rheumatoid arthritis with rheumatoid factor of unspecified site without organ or systems involvement (principal); E11.42 Type 2 diabetes mellitus with diabetic polyneuropathy; R76.8 Other specified abnormal immunological findings in serum; M47.814 Spondylosis without myelopathy or radiculopathy, thoracic region; M17.0 Bilateral primary osteoarthritis of knee; M21.41 Flat foot [pes planus] (acquired), right foot; K76.0 Fatty (change of) liver, not elsewhere classified; K21.9 Gastro-esophageal reflux disease without esophagitis; G25.81 Restless legs syndrome; M81.0 Age-related osteoporosis without current pathological fracture; I10 Essential (primary) hypertension; E78.5 Hyperlipidemia, unspecified; I89.0 Lymphedema, not elsewhere classified; J45.909 Unspecified asthma, uncomplicated; M72.0 Palmar fascial fibromatosis [Dupuytren]; Z79.899 Other long term (current) drug therapy
CPT/HCPCS: 36415; 80053; 85025

== ENCOUNTER → 2023-05-16 | Outpatient (CLI) | payer MEDICARE, SELFPAY ==
[2023-05-16 12:02] LABS: Erythrocyte Sedimentation Rate 14 mm/hr (0-30)
[2023-05-16 12:27] LABS: CRP 8.16 mg/L (0.0-3.0)
[2023-05-19 14:08] LABS: Angiotensin Convert Enzyme 30 U/L (14-82)
== END | disposition home or self-care (01) ==
LOC: MTLAB 10:24
PROVIDERS: PCP Nurse Practitioner Primary Care; Referring Provider Internal Medicine Pulmonary Disease; Visit Provider Internal Medicine Pulmonary Disease
DX: R05.9 Cough, unspecified (principal)
CPT/HCPCS: 36415; 82164; 85652; 86140

== ENCOUNTER → 2023-06-10 | Outpatient (CLI) | payer MEDICARE, SELFPAY | END | disposition home or self-care (01) | LOC: MTLAB 11:55 | PROVIDERS: PCP Nurse Practitioner Primary Care; Referring Provider Internal Medicine Pulmonary Disease; Visit Provider Internal Medicine Pulmonary Disease | DX: R05.9 Cough, unspecified (principal) | CPT/HCPCS: 87070; 87205 ==